=== PATIENT | male | born 1940 | race Hispanic/Latino ===

== ENCOUNTER 2023-06-30 07:14 | Inpatient (IN) | payer OTHER, SELFPAY ==
[2023-06-30] MEDS ORDERED: ACETAMINOPHEN 500 MG TAB ONE (07:56)
[2023-06-30 07:59] LABS: Absolute Lymphocytes (CBC) 0.4 K/uL (0.7-4.9); Hematocrit 33.1 % (39.6-49.0); Lymphocytes % 1.7 % (15.3-44.8); MCV 82.5 fL (80-100); MPV 8.6 fL (7.6-11.3); Platelets 246 thou/uL (152-406); RBC Red Blood Cell Count 4.01 M/uL (4.33-5.43)
--- NOTE | 2023-06-30 07:59 | RAD REPORT ---
EXAM DESCRIPTION: RAD - Chest Single View - 06/30/2023 7:47 am CLINICAL HISTORY: CONGESTION Chest pain. COMPARISON: No comparisons FINDINGS: Portable technique limits examination quality. Moderate patchy opacity is seen in the right lung base likely pneumonia. The lungs are otherwise bhaskar r. The heart is mildly enlarged. No displaced fractures. IMPRESSION: Moderate right lower lobe pneumonia.
[2023-06-30 08:15] LABS: Potassium 3.7 mEq/L (3.5-5.1); Troponin High Sensitivity 39.8 pg/mL (<58.9)
[2023-06-30 08:20] LABS: Protime INR 1.16
[2023-06-30 08:42] LABS: Specific Gravity 1.014 (1.005-1.030); Urine Bacteria <20 /HPF (<20); Urine Bilirubin NEGATIVE (Negative); Urine Blood 2+ (Negative); Urine Clarity Extremely Turbid (Clear); Urine Color Light-Yellow (Yellow); Urine Glucose TRACE (Negative); Urine Mucus Slight /HPF (None Seen); Urine Protein 3+ (Negative); Urine RBC <5 /HPF (None Seen); Urine Urobilinogen Normal (Normal)
[2023-06-30] MEDS ORDERED: NA CHLORIDE 0.9% 250 ML ONE (08:43)
[2023-06-30] MEDS ORDERED: AZITHROMYCIN 500 MG INJ IVPB ONE (08:43)
[2023-06-30] MEDS ORDERED: CEFTRIAXONE 1000 MG/VIAL ONE (08:43)
[2023-06-30 08:49] LABS: SARS-CoV-2 Antigen Rapid Res Negative (Negative)
--- NOTE | 2023-06-30 09:24 | RAD REPORT ---
EXAM DESCRIPTION: CT - Chest For Pe Angio - 06/30/2023 8:55 am CLINICAL HISTORY: Chest pain. eval for pe COMPARISON: No comparisons TECHNIQUE: CT angiogram of the pulmonary arteries was performed with MIP. All CT scans are performed using dose optimization technique as appropriate and may include automated exposure control or mA/KV adjustment according to patient size. FINDINGS: No evidence of pulmonary thromboembolism. No acute aortic finding demonstrated. Mild diffuse COPD. Patchy opacity is present in the right lower lobe likely pneumonia. No significant pericardial or pleural fluid. No concerning bony finding. IMPRESSION: No evidence of pulmonary thromboembolism. Patchy opacities in right lower lung most compatible with pneumonia.
--- NOTE | 2023-06-30 09:27 | ER ---
Nurse's Notes [facility] Name: Merlin Colbert Age: 83 yrs Sex: Male : 1940 Arrival Date: 06/30/2023 Time: 07:14 Bed 15 Private MD: Diagnosis: Sepsis, unspecified organism;Unspecified bacterial pneumonia Presentation: 06/30 07:32 Chief complaint: Patient's son or daughter states: cough, cold symptoms, SOB X 2 weeks, iw no fever, has some chest tightness, hx of asthma and his sugar has been high, he just moved from [place] to live with daughter , she is trying to establish care for him locally. Coronavirus screen: Client presents with at least one sign or symptom that may indicate coronavirus-19. Ebola Screen: No symptoms or risks identified at this time. Initial Sepsis Screen: Does the patient meet any 2 criteria? RR > 20 per min. HR > 90 bpm. Does the patient have a suspected source of infection? Yes:. Risk Assessment: Do you want to hurt yourself or someone else? Patient reports no desire to harm self or others. Onset of symptoms was June 19, 2023. 07:32 Method Of Arrival: Wheelchair iw 07:32 Acuity: TATA 2 iw Triage Assessment: 17:02 General: Appears in no apparent distress. Behavior is calm, cooperative, appropriate cp4 for age. Respiratory: Reports shortness of breath at rest on exertion Onset: The symptoms/episode began/occurred gradually, the patient has moderate shortness of breath. Historical: - Allergies: 07:34 No Known Allergies; iw - Home Meds: 07:34 atorvastatin 20 mg oral tablet daily [Active]; glipizide 5 mg Oral tablet daily iw [Active]; amlodipine 10 mg tablet daily [Active]; losartan 100 mg oral tablet daily [Active]; Iron CR Oral daily [Active]; - PMHx: 07:34 Hypertensive disorder; Diabetes mellitus; Asthma; iw - PSHx: 07:34 leg; iw - Immunization history:: Client reports receiving the 2nd dose of the Covid vaccine. - Social history:: Smoking status: Patient/guardian denies using tobacco. Screenin:36 [facility] ED Fall Risk Assessment (Adult) History of falling in the last 3 months, ld1 including since admission No falls in past 3 months (0 pts). Abuse screen: Denies threats or abuse. Denies injuries from another. Nutritional screening: No deficits noted. Tuberculosis screening: No symptoms or risk factors identified. Assessment: 08:34 Reassessment: See triage assessment. Pain: Denies pain. Cardiovascular: Capillary ld1 refill < 3 seconds Patient's skin is warm and dry. Rhythm is atrial fibrillation. 08:35 Respiratory: Airway is patent Respiratory effort is even, labored, Breath sounds with ld1 wheezes bilaterally. 08:35 Reassessment: Pt C/O difficulty breathing. Notified ERP. Pt placed on 3L NC. ld1 17:43 Reassessment: Attempted to call report. Kelsey is off the floor and will call me back. cp4 Vital Signs: 07:32 BP 165 / 64; Pulse 100; Resp 25; Temp 98.7(TE); Pulse Ox 96% on R/A; Weight 106.59 kg; iw Height 5 ft. 5 in. ; 08:35 BP 162 / 61; Pulse 84; Resp 23; Pulse Ox 99% on 3 lpm NC; ld1 09:47 Pulse 92; Resp 22; Pulse Ox 98% on 3 lpm NC; ld1 11:00 BP 145 / 64; Pulse 78; Resp 20; Pulse Ox 99% 3 lpm ; cp4 12:00 BP 136 / 66; Pulse 73; Resp 20; Pulse Ox 99% 3 lpm ; cp4 13:00 BP 138 / 49; Pulse 79; Resp 22; Pulse Ox 100% 3 lpm ; cp4 14:00 BP 126 / 49; Pulse 78; Resp 20; Pulse Ox 100% 3 lpm ; cp4 15:00 BP 136 / 66; Pulse 78; Resp 20; Pulse Ox 100% 3 lpm ; cp4 16:00 BP 96 / 79; Pulse 76; Resp 21; Pulse Ox 100% 3 lpm ; cp4 17:00 BP 119 / 78; Pulse 78; Resp 21; Pulse Ox 100% 3 lpm ; cp4 07:32 Body Mass Index 39.11 (106.59 kg, 165.1 cm) iw ED Course: 07:18 Patient arrived in ED. rg4 07:24 Eboni Sal, STACEY is Primary Nurse. ld1 07:34 Triage completed. iw 07:35 Arm band placed on. iw 07:45 Jozef Mai MD is Attending Physician. ec2 07:49 XRAY Chest (1 view) In Process Unspecified. EDMS 07:54 Inserted saline lock: 20 gauge in right forearm, using aseptic technique. Blood ld1 collected. 07:55 Basic Metabolic Panel Sent. ld1 07:55 CBC with Diff Sent. ld1 07:55 D-Dimer Sent. ld1 07:55 Troponin HS Sent. ld1 08:08 SARS RAPID Sent. ld1 08:08 Influenza Screen (a \T\ B) Sent. ld1 08:08 Blood Culture Adult (2) Sent. ld1 08:08 Lactate w/ 2H reflex if indic. Sent. ld1 08:09 Troponin HS Sent. ld1 08:09 D-Dimer Sent. ld1 08:09 Basic Metabolic Panel Sent. ld1 08:09 Ptt, Activated Sent. ld1 08:09 Protime (+inr) Sent. ld1 08:09 NT PRO-BNP Sent. ld1 08:36 Patient has correct armband on for positive identification. Placed in gown. Bed in low ld1 position. Call light in reach. Side rails up X2. cafeteria monitor on. Pulse ox on. NIBP on. Door closed. Noise minimized. Warm blanket given. 08:36 No provider procedures requiring assistance completed. ld1 08:57 CT Chest For PE Angio In Process Unspecified. EDMS 09:26 Jozef Mai MD is Hospitalizing Provider. ec2 09:26 Ermias Burden MD is Hospitalizing Provider. ec2 18:14 Provided Education on: admission. cp4 18:14 Patient admitted, IV remains in place. cp4 Administered Medications: 08:09 Drug: Acetaminophen PO 1000 mg PO once Route: PO; ld1 08:47 Drug: Rocephin IV 1 grams IV at calculated rate once; Given slow IV push per pharmacy ld1 instructions Route: IV; Rate: calculated rate; Site: right forearm; 09:09 Drug: AZITHromycin IVPB 500 mg IVPB once over 1 hrs; (mix in 250 mL NS) Route: IVPB; ld1 Infused Over: 1 hrs; Site: right forearm; 10:33 Drug: Lactated Ringers Solution IV 1000 ml IV at bolus bolus Route: IV; Rate: bolus; cp4 Site: right antecubital; Medication: 08:36 VIS not applicable for this client. ld1 Outcome: 09:27 Decision to Hospitalize by Provider. ec2 18:14 Admitted to Tele accompanied by tech, via wheelchair, Report called to Kelsey clark 18:14 Condition: stable 18:14 Instructed on the need for admit, Demonstrated understanding of instructions, 18:28 Patient left the ED. cp4 Signatures: Dispatcher [employer] Anupama Perez RN RN iw Garcia, Rubi rg4 Eboin Sal RN RN ld1 Jozef Mai MD MD ec2 Alyssa Zaidi cp4
--- NOTE | 2023-06-30 09:27 | EDPHYS ---
Physician Documentation [facility] Name: Merlin Colbert Age: 83 yrs Sex: Male : 1940 Arrival Date: 06/30/2023 Time: 07:14 Bed 15 Private MD: ED Physician Jozef Mai HPI: 06/30 07:55 This 83 yrs old Male presents to ER via Wheelchair with complaints of ec2 Shortness Of Breath. 07:55 . ec2 07:56 Patient arrives today for evaluation of shortness of breath and chest tightness. ec2 Patient reports has been having symptoms for the past week, worsening today. Patient reports chest tightness as well as a productive cough, no fevers or chills, no nausea or vomiting. Patient reports some increased urinary frequency as well. Patient reports history of hypertension and diabetes as well as asthma. Has been using inhalers at home with some improvement in symptoms.. Historical: - Allergies: 07:34 No Known Allergies; iw - Home Meds: 07:34 atorvastatin 20 mg oral tablet daily [Active]; glipizide 5 mg Oral tablet daily iw [Active]; amlodipine 10 mg tablet daily [Active]; losartan 100 mg oral tablet daily [Active]; Iron CR Oral daily [Active]; - PMHx: 07:34 Hypertensive disorder; Diabetes mellitus; Asthma; iw - PSHx: 07:34 leg; iw - Immunization history:: Client reports receiving the 2nd dose of the Covid vaccine. - Social history:: Smoking status: Patient/guardian denies using tobacco. ROS: 07:56 Constitutional: as per hpi ec2 Exam: 07:56 Constitutional: GEN: NAD Head: atraumatic Eyes: EOMI Ears: External ears are ec2 normal. CV: Tachycardia, trace lower extremity edema LUNGS: no respiratory distress, scattered rhonchi ABD: non-distended SKIN: no evidence of rashes MSK: no evidence of trauma NEURO: moves all extremities equally Vital Signs: 07:32 BP 165 / 64; Pulse 100; Resp 25; Temp 98.7(TE); Pulse Ox 96% on R/A; Weight 106.59 kg; iw Height 5 ft. 5 in. ; 08:35 BP 162 / 61; Pulse 84; Resp 23; Pulse Ox 99% on 3 lpm NC; ld1 09:47 Pulse 92; Resp 22; Pulse Ox 98% on 3 lpm NC; ld1 11:00 BP 145 / 64; Pulse 78; Resp 20; Pulse Ox 99% 3 lpm ; cp4 12:00 BP 136 / 66; Pulse 73; Resp 20; Pulse Ox 99% 3 lpm ; cp4 13:00 BP 138 / 49; Pulse 79; Resp 22; Pulse Ox 100% 3 lpm ; cp4 14:00 BP 126 / 49; Pulse 78; Resp 20; Pulse Ox 100% 3 lpm ; cp4 15:00 BP 136 / 66; Pulse 78; Resp 20; Pulse Ox 100% 3 lpm ; cp4 16:00 BP 96 / 79; Pulse 76; Resp 21; Pulse Ox 100% 3 lpm ; cp4 17:00 BP 119 / 78; Pulse 78; Resp 21; Pulse Ox 100% 3 lpm ; cp4 07:32 Body Mass Index 39.11 (106.59 kg, 165.1 cm) iw MDM: 07:56 Data reviewed: vital signs. ED course: Patient arrives today for evaluation of chest ec2 tightness. Examination remarkable for slight tachycardic individual who has lower extremity trace edema. Will obtain lab work, EKG, chest x-ray as well as viral swabs. EKG obtained, independently reviewed and interpreted by me, shows atrial flutter with variable conduction with a rate of 108, no acute ST segment elevations, nonconcerning intervals.. 07:59 Patient medically screened. ec2 08:32 ED course: Metabolic profile shows hyponatremia with a sodium of 123, renal dysfunction ec2 with a creatinine of 1.76 and GFR 38. CBC shows marked leukocytosis with a WBC of 24. D-dimer elevated at 1700, BNP elevated at 1500. Troponin within normal ranges. Will obtain CT scan of the chest, treat the patient with antibiotics for pneumonia. . 09:25 ED course: CT scan negative for PE. Will admit for sepsis secondary to pneumonia.. ec2 06/30 07:35 Order name: Basic Metabolic Panel; Complete Time: 08:32 ld1 06/30 07:35 Order name: CBC with Diff ld1 06/30 07:35 Order name: D-Dimer; Complete Time: 08:32 ld1 06/30 07:35 Order name: Troponin HS; Complete Time: 08:32 ld1 06/30 07:55 Order name: Blood Culture Adult (2) ec2 06/30 07:55 Order name: Lactate w/ 2H reflex if indic.; Complete Time: 08:35 ec2 06/30 07:55 Order name: Protime (+inr); Complete Time: 08:32 ec2 06/30 07:55 Order name: Ptt, Activated; Complete Time: 08:32 ec2 06/30 07:55 Order name: Influenza Screen (a \T\ B); Complete Time: 09:15 ec2 06/30 07:55 Order name: SARS RAPID; Complete Time: 09:15 ec2 06/30 07:55 Order name: UAM; Complete Time: 09:15 ec2 06/30 08:03 Order name: NT PRO-BNP; Complete Time: 08:32 EDMS 06/30 10:24 Order name: Comprehensive Metabolic Panel EDMS 06/30 10:24 Order name: Comprehensive Metabolic Panel EDMS 06/30 10:24 Order name: Basic Metabolic Panel EDMS 06/30 10:25 Order name: Urinalysis w/ reflexes EDMS 06/30 10:25 Order name: CBC with Automated Diff EDMS 06/30 10:25 Order name: CBC with Automated Diff EDMS 06/30 10:25 Order name: CBC with Automated Diff EDMS 06/30 10:25 Order name: CBC with Automated Diff EDMS 06/30 10:25 Order name: CBC with Automated Diff EDMS 06/30 10:25 Order name: Comprehensive Metabolic Panel EDMS 06/30 10:25 Order name: Comprehensive Metabolic Panel EDMS 06/30 10:25 Order name: Comprehensive Metabolic Panel EDMS 06/30 10:25 Order name: Hemoglobin A1c EDMS 06/30 10:25 Order name: Hemoglobin A1c EDMS 06/30 10:25 Order name: Lipid Profile EDMS 06/30 10:25 Order name: Lipid Profile EDMS 06/30 10:25 Order name: Magnesium EDMS 06/30 10:25 Order name: Magnesium EDMS 06/30 10:25 Order name: Magnesium EDMS 06/30 10:25 Order name: Magnesium EDMS 06/30 10:25 Order name: Magnesium EDMS 06/30 10:25 Order name: Phosphorus EDMS 06/30 10:25 Order name: Phosphorus EDMS 06/30 10:25 Order name: Phosphorus EDMS 06/30 10:25 Order name: Phosphorus EDMS 06/30 10:25 Order name: Phosphorus EDMS 06/30 10:25 Order name: T4 Free EDMS 06/30 10:25 Order name: T4 Free EDMS 06/30 10:25 Order name: Thyroid Stimulating Hormone EDMS 06/30 10:25 Order name: Thyroid Stimulating Hormone [facility] 06/30 10:25 Order name: Troponin High Sensitivity EDMS 06/30 10:25 Order name: Troponin High Sensitivity EDMS 06/30 10:25 Order name: Troponin High Sensitivity [facility] 06/30 10:47 Order name: Vancomycin Level Trough [facility] 06/30 12:18 Order name: Glucose, Ancillary Testing [facility] 06/30 12:40 Order name: CBC Smear Scan [facility] 06/30 14:58 Order name: Osmolality, Serum [facility] 06/30 07:35 Order name: XRAY Chest (1 view); Complete Time: 08:32 ld1 06/30 08:33 Order name: CT Chest For PE Angio; Complete Time: 09:25 2 06/30 10:25 Order name: Echo with Doppler [facility] 06/30 13:43 Order name: US [facility] 06/30 07:35 Order name: EKG; Complete Time: 07:36 ld1 06/30 07:35 Order name: Cardiac monitoring; Complete Time: 07:35 ld06/30 07:35 Order name: EKG - Nurse/Tech; Complete Time: 07:40 ld1 06/30 07:35 Order name: IV Saline Lock; Complete Time: 07:53 1 06/30 07:35 Order name: Labs collected and sent; Complete Time: 07:53 06/30 07:35 Order name: O2 Per Protocol; Complete Time: 07:35 ld06/30 07:35 Order name: O2 Sat Monitoring; Complete Time: 07:35 ld1 Administered Medications: 08:09 Drug: Acetaminophen PO 1000 mg PO once Route: PO; ld1 08:47 Drug: Rocephin IV 1 grams IV at calculated rate once; Given slow IV push per pharmacy ld1 instructions Route: IV; Rate: calculated rate; Site: right forearm; 09:09 Drug: AZITHromycin IVPB 500 mg IVPB once over 1 hrs; (mix in 250 mL NS) Route: IVPB; ld1 Infused Over: 1 hrs; Site: right forearm; 10:33 Drug: Lactated Ringers Solution IV 1000 ml IV at bolus bolus Route: IV; Rate: bolus; cp4 Site: right antecubital; Disposition Summary: 06/30/23 09:27 Hospitalization Ordered Notes: Hospitalization Status: Inpatient Admission ec2 Provider: Ermias Burden ec2 Condition: Stable ec2 Problem: new ec2 Symptoms: have improved ec2 Bed/Room Type: Standard ec2 Location: Telemetry/MedSurg (Inpatient)(06/30/23 16:59) 1 Room Assignment: 408(06/30/23 16:59) [facility] Diagnosis - Sepsis, unspecified organism ec2 - Unspecified bacterial pneumonia ec2 Forms: - Medication Reconciliation Form ec2 - SBAR form ec2 - Leadership Thank You Letter ec2 Critical care time excluding procedures: 08:33 Critical care time: Bedside Care: 30 minutes, Consultation: 5 minutes. Total time: 35 ec2 minutes Signatures: Dispatcher [employer] EDAnupama Spangler, RN RN iw Demond Mosley, ENGINE REPAIR SUPERVISOR-C ENGINE REPAIR SUPERVISOR-Cla1 Gordo Verduzco RN RN ja1 Eboni Sal RN RN ld1 Cherelle Garay RN RN kb3 Jozef Mai MD MD ec2 Alyssa Zaidi cp4 Corrections: (The following items were deleted from the chart) 07:56 07:56 Patient arrives today for evaluation of shortness of breath and chest tightness.. ec2 ec2 08:03 07:55 PROBNP+C.LAB.BRZ ordered. EDOK EDMS 12:47 09:27 Telemetry/MedSurg (Inpatient) ec2 kb3 12:47 09:27 ec2 kb3 16:59 12:47 [facility] ER HOLD kb3 ja1 16:59 12:47 ERHOLD- kb3 ja1
[2023-06-30] MEDS ORDERED: ACETAMINOPHEN 500 MG TAB PO PRN (10:22)
[2023-06-30] MEDS ORDERED: ALBUTEROL 2.5 MG/3 ML NEB SOL NEB PRN (10:22)
[2023-06-30] MEDS: Ringers Lactate 1,000 ML IV SCH ×2 (11:00→19:44)
[2023-06-30] MEDS: CEFEPIME 1 GM in NA CHLORIDE 0.9% 100 ML IV SCH ×2 (11:00→19:43)
[2023-06-30] MEDS: VANCOMYCIN 2 GM in NA CHLORIDE 0.9% 500 ML IVPB SCH (11:00)
[2023-06-30] MEDS: ENOXAPARIN 100 MG/ML SYR SQ SCH (11:00)
[2023-06-30] MEDS: INSULIN REGULAR (HUMAN) 100 UNIT/ML SQ SCH ×3 (11:30→19:42)
[2023-06-30] MEDS ORDERED: INSULIN REGULAR (HUMAN) 100 UNIT/ML ONE (12:09)
[2023-06-30] MEDS ORDERED: CEFEPIME 1 GM/VIAL ONE (12:10)
[2023-06-30] MEDS ORDERED: NA CHLORIDE 0.9% 100 ML ONE (12:10)
[2023-06-30] MEDS ORDERED: ENOXAPARIN 100 MG/ML SYR SQ ONE (12:10)
[2023-06-30 12:39] LABS: Blood Morphology Comment NOT SEEN (NOT SEEN); Platelet Estimate ADEQ; White Blood Cell Scan OK (OK)
--- NOTE | 2023-06-30 13:42 | RAD REPORT ---
EXAM DESCRIPTION: US - Extrem Venous W Compress Kunal - 06/30/2023 1:04 pm CLINICAL HISTORY: Shortness of breath. Evaluate for DVT COMPARISON: None. TECHNIQUE: Real-time sonographic evaluation of the bilateral lower extremity deep venous systems was performed. FINDINGS: Normal compressibility, flow augmentation, phasic flow and spontaneous flow is identified in both the left and right lower extremity deep venous systems. No suspicious intraluminal filling de fects seen although a smooth echogenic focus is seen anteriorly along the left mid SFV, may represent a prominent valve. IMPRESSION: No DVT in either lower extremity.
[2023-06-30 13:44] VITALS: BMI 38.9
[2023-06-30 15:02] LABS: Potassium 3.7 mEq/L (3.5-5.1)
--- NOTE | 2023-06-30 15:17 | P.HP ---
Certification for Inpatient Patient admitted to: Inpatient With expected LOS: >2 Midnights Patient will require the following post-hospital care: None Practitioner: I am a practitioner with admitting privileges, knowledge of patient current condition, hospital course, and medical plan of care. Services: Services provided to patient in accordance with Admission requirements found in Title 42 Section 412.3 of the Code of Federal Regulations <Demond Mosley - Last Filed: 06/30/23 15:10> Patient History Date of Service: 06/30/23 Reason for admission: Pneumonia, hyponatremia History of Present Illness: 83-year-old male with history of diabetes type [id number], hypertension, hyperlipidemia, CKD with unknown baseline presents to the emergency department with chief complaint of shortness of breath. His family reports that he recently moved here from [place] and has been feeling unwell the past 2 weeks with cough, shortness of breath. He was evaluated in the emergency department his labs are significant for marked leukocytosis white blood cell count 24.6 sodium 123 potassium 3.7 chloride 92 creatinine 1.76 GFR 38 glucose 237 BNP 1520 D-dimer was elevated 1710 UA not concerning for urinary tract infection CTA of the chest was performed which was negative for PE but did show a right-sided pneumonia, venous Dopplers were performed bilateral lower extremities which were negative for DVT. Of note patient was in atrial fibrillation which would be new onset for him rate was between 80 and 100. Patient need to be admitted for sepsis, pneumonia, new onset atrial fibrillation, hyponatremia - Past Medical/Surgical History Has patient received pneumonia vaccine in the past: No -: CKD -: Hypertension -: Hyperlipidemia -: Diabetes mellitus type [id number] -: Left leg surgery Psychosocial/ Personal History: Lives at home with his daughter, recently moved from [place] - Family History Family History: Reviewed- Non-Contributory - Social History Smoking Status: Former smoker Alcohol use: No CD- Drugs: No Caffeine use: Yes Place of Residence: Home <Demond Mosley - Last Filed: 06/30/23 15:10> Date of Service: 06/30/23 <Ermias Burden - Last Filed: 06/30/23 17:44> Allergies No Known Allergies Allergy (Unverified 06/30/23 10:32) Review of Systems 10-point ROS is otherwise unremarkable General: Chills, Weakness Respiratory: Cough, Shortness of Breath, SOB with Excertion <DimitriDemond Reardon - Last Filed: 06/30/23 15:10> Physical Examination - Vital Signs Temperature: 98.7 F Blood Pressure: 136/66 Pulse: 68 Respirations: 20 Pulse Ox (%): 99 - Physical Exam General: Alert, In no apparent distress, Oriented x3 HEENT: Atraumatic, PERRLA, Mucous membr. moist/pink Neck: Supple, 2+ carotid pulse no bruit, No LAD Respiratory: Diminished Cardiovascular: Normal S1 S2, Edema (Trace edema lower extremities worse on the left with healed surgical wound at ankle), Irregular heart rate/rhythm Gastrointestinal: Normal bowel sounds, No tenderness Musculoskeletal: No tenderness Integumentary: No rashes Neurological: Normal speech, Normal strength at 5/5 x4 extr, Normal tone, Normal affect - Studies Laboratory Data (last 24 hrs) 06/30/23 06/30/23 06/30/23 07:49 07:49 07:49 WBC 24.60 H Hgb 11.0 L Hct 33.1 L Plt Count 246 PT 12.7 H INR 1.16 APTT 30.5 Sodium 123 L Potassium 3.7 BUN 32 H Creatinine 1.76 H Glucose 237 H Microbiology Data (last 24 hrs): 06/30/23 08:04 Nasopharnyx Influenza Type A Antigen Screen - Final 06/30/23 08:04 Nasopharnyx Influenza Type B Antigen Screen - Final <Demond Mosley - Last Filed: 06/30/23 15:10> - Studies Laboratory Data (last 24 hrs) 06/30/23 06/30/23 06/30/23 07:49 07:49 07:49 WBC 24.60 H Hgb 11.0 L Hct 33.1 L Plt Count 246 PT 12.7 H INR 1.16 APTT 30.5 Sodium 123 L Potassium 3.7 BUN 32 H Creatinine 1.76 H Glucose 237 H Microbiology Data (last 24 hrs): 06/30/23 08:04 Nasopharnyx Influenza Type A Antigen Screen - Final 06/30/23 08:04 Nasopharnyx Influenza Type B Antigen Screen - Final <Ermias Burden - Last Filed: 06/30/23 17:44> Assessment and Plan - Plan Assessment: Sepsis secondary to right-sided pneumonia Hyponatremia New onset atrial fibrillation Diabetes mellitus type [id number] with hyperglycemia Hypertension Hyperlipidemia CKDunknown baseline Plan: Sepsis secondary to right-sided pneumonia Blood cultures obtained-follow Continue broad-spectrum antibiotics vancomycin/cefepime Currently on nasal cannula-wean as tolerated Hyponatremia Suspect this acute Will give gentle IVF and repeat chemistry Nephrology consult in place urine studies ordered New onset atrial fibrillation Echo ordered, cardiology consult [id number] 2 score is 4 warranting anticoagulation-lovenox ordered Rate controlled at this time, BP on the low side Diabetes mellitus type [id number]-vyenfiejn with hyperglycemia ACHS Accu-Chek,sliding scale insulin, A1c in the morning Hypertension Hold oral antihypertensive agents given elevated blood pressure Resume when blood pressures persistently elevated Hyperlipidemia Continue home medications once verified CKDunknown baseline Monitor renal function daily, continue gentle IV fluid DVT PPX: Therapeutic Lovenox Code status: Full Discharge Plan: Home Plan to discharge in: Greater than 2 days - Advance Directives Does patient have a Living Will: No Does patient have a Durable POA for Healthcare: No - Code Status/Comfort Care Code Status Assessed: Yes (Full code) Critical Care: No Time Spent Managing Pts Care (In Minutes): 70 <Demond Mosley - Last Filed: 06/30/23 15:10> - Plan Patient seen and examined on admission. Plan of care discussed with BOG WORKER Dimitri. Agree with plan as noted above with the following additions/corrections: Sepsis secondary to pneumonia, continue empiric antibiotics 1+ lower extremity edema to ankles on the right, 12+ on the left which is more chronic according the patient. He reported few days of slight discomfort right foot Elevated D-dimer, negative CTA for PE Rule out DVT <Ermias Burden - Last Filed: 06/30/23 17:44>
[2023-06-30] MEDS ORDERED: INFLUENZA VACCINE (for 6+ mo) 0.5 ML DOSE IMVAC ONE (16:00)
[2023-06-30] MEDS ORDERED: PNEUMOCOCCAL VACCINE 0.5 ML IMVAC ONE (16:00)
--- NOTE | 2023-06-30 16:54 | P.CNS ---
Date of Consult: 06/30/23 Reason for Consult: Shortness of breath Chief Complaint: Pneumonia, hyponatremia History of Present Illness: He is 83 years of age metabolic syndrome with shortness of breath apparently recently moved from [place] has not feeling well for the past 2 weeks comp laining of cough and shortness of breath. With leukocytosis hyponatremia hypokalemia renal insufficiency with a right-sided pneumonia my evaluation he was doing well patient is nonverbal Barbadian-speaking only he looked well was eating his lunch he had any distress new onset A-fib Allergies No Known Allergies Allergy (Unverified 06/30/23 10:32) Home Medications: Albuterol Neb [Proventil 0.083% Neb Soln] 2.5 mg NEB [id number] PRN #120 amp 07/02/23 Apixaban [Eliquis *] 2.5 mg PO BID #60 tab 07/02/23 Ipratropium Neb [Atrovent*] 0.5 mg NEB [id number] #120 amp 07/02/23 Metoprolol Tartrate [Lopressor*] 25 mg PO BID 6AM 6PM #60 tab 07/02/23 Nebulizer 1 each MC QID #1 ea 07/02/23 levoFLOXacin [Levaquin] 750 mg PO DAILY #8 tab 07/02/23 - Past Medical/Surgical History -: CKD -: Hypertension -: Hyperlipidemia -: Diabetes mellitus type [id number] -: Left leg surgery Psychosocial/ Personal History: Lives at home with his daughter, recently moved from [place] - Social History Alcohol use: No CD- Drugs: No Caffeine use: Yes Place of Residence: Home Review of Systems is unable to be obtained Physical Examination Temp Pulse Resp BP Pulse Ox 98.7 F 68 20 136/66 99 06/30/23 15:17 06/30/23 15:17 06/30/23 15:17 06/30/23 15:17 06/30/23 15:17 General: Alert, Cooperative Respiratory: Clear to auscultation bilaterally Cardiovascular: No edema, Regular rate/rhythm, Normal S1 S2 Gastrointestinal: Normal bowel sounds, Soft and benign Laboratory Data (last 24 hrs) 06/30/23 06/30/23 06/30/23 07:49 07:49 07:49 WBC 24.60 H Hgb 11.0 L Hct 33.1 L Plt Count 246 PT 12.7 H INR 1.16 APTT 30.5 Sodium 123 L Potassium 3.7 BUN 32 H Creatinine 1.76 H Glucose 237 H - Problems (1) Pneumonia Current Visit: Yes Status: Acute Plan: Patient is 83 years of age Barbadian-speaking only was admitted admitted with right lower lobe pneumonia leukocytosis hyponatremia mild renal insufficiency scan chest x-rays reviewed he has some right lower lobe infiltrate his white count is is elevated he is on cefepime vancomycin await blood culture his vital signs are stable Qualifiers: Pneumonia type: due to unspecified organism Laterality: right
--- NOTE | 2023-06-30 19:10 | CON ---
Date of Consultation: 06/30/2023 Reason For Consultation: Atrial fibrillation with ventricular response. History Of Present Illness: An 83-year-old male with history of diabetes, hypertension, dyslipidemia , chronic kidney disease, presented to the emergency room with shortness of breath, cough, low-grade fever, and sputum production. Found to be in atrial fibrillation with rapid ventricular response and he converted to sinus rhythm and has been in sinus since, but he does have also complaint of chest p ain on and off. Past Medical History: As outlined above in the HPI. Medications: Refer to reconciliation sheet for detailed list. Allergies: NO KNOWN DRUG ALLERGIES. Family History: No premature coronary artery disease or cancer. Social History: He does not smoke or drink. Does not use any drugs. Review of Systems: All systems reviewed and they were negative except what mentioned in HPI. Physical Examination: Vital Signs: Reviewed. Head and Neck: Pupils are equal, reactive to light. Intact eye movements. No JVD. No cervical lym phadenopathy. Neck is supple. Thyroid is not enlarged. Lungs: Decreased breathing sounds with rhonchi bilaterally. No accessory muscle use or muscle retra ction. Heart: Regular rate and rhythm. No extra sounds. Abdomen: Soft, nontender. Bowel sounds positive. No organomegaly. No masses or hernia. No rigidi ty or rebound. Extremities: No clubbing or cyanosis. Intact pulses. Skin: No rash. Neurologic: Alert, awake, oriented x3. No acute focal deficits appreciated. Investigations: D-dimer was [address] angiogram ruled out pulmonary embolism. Hemoglobin is 11, w lorna blood cell count is 24.6, and the cardiac enzymes are negative. BUN is 31, creatinine 1.68. Assessment And Recommendations: 1.Atrial fibrillation with rapid ventricular response, converted to sinus rhythm. Recommend to star t metoprolol 25 mg by mouth twice a day and he needs a stroke prevention with Eliquis 2.5 mg twice a day and obtain an echocardiogram. He is currently in sinus rhythm. 2.Chest discomfort due to pneumonia. It is a pleuritic pain. Cardiac enzymes are negative and PE w as ruled out and he is on antibiotics for the pneumonia. Cardiology will sign off and this patient c an be followed up as outpatient once his pneumonia is cleared. SR/MODL Voice ID: [id number] Report ID: [id number]
[2023-06-30 20:02] LABS: Specific Gravity 1.019 (1.005-1.030); Urine Bacteria None Seen /HPF (<20); Urine Bilirubin NEGATIVE (Negative); Urine Blood 1+ (Negative); Urine Clarity Extremely Turbid (Clear); Urine Color Light-Yellow (Yellow); Urine Crystals Unidentified Few /HPF (None Seen); Urine Glucose TRACE (Negative); Urine Protein 2+ (Negative); Urine RBC <5 /HPF (None Seen); Urine Urobilinogen Normal (Normal); Urine pH 5.5 (5.0-7.0)
[2023-06-30] MEDS ORDERED: ENOXAPARIN 100 MG/ML SYR SQ SCH (21:00)
[2023-06-30 21:31] LABS: UR SODIUM < 15 mmol/L (27-287)
[2023-06-30] MEDS ORDERED: Ringers Lactate 1,000 ML IV SCH (23:18)
[2023-06-30 23:57] LABS: Albumin 2.4 g/dL (3.4-5.0); Bilirubin Total 0.2 mg/dL (0.2-1.0); Magnesium 1.9 mg/dL (1.6-2.4); Phosphorus 3.3 mg/dL (2.5-4.9); Potassium 3.7 mEq/L (3.5-5.1); Protein, Total 6.5 g/dL (6.4-8.2); Uric Acid 6.6 mg/dL (3.5-7.2)
[2023-07-01] MEDS: ENOXAPARIN 100 MG/ML SYR SQ SCH ×2 (00:16→12:21)
[2023-07-01] MEDS ORDERED: THIAMINE 200 MG/2 ML INJ IVP ONE (00:28)
--- NOTE | 2023-07-01 00:33 | PN ---
Date of Progress Note: 06/30/2023 Chief Complaint: Acute kidney injury associated with hyponatremia. Subjective: The patient is admitted for pneumonia. He was found to have hyponatremia. Sodium level on admission was 123. The patient was started on mild hydration and lactated Ringer was used for hy dration. He is an 83-year-old man with history of diabetes mellitus, non-insulin dependent, hyperten heber, hyperlipidemia, chronic kidney disease of unknown baseline. [facility] of [facility] of [facility]. His family reported that he recently moved from [facility]. He was feeling unwell over last 2 weeks and he was complaining of cough and shortness of breath . He was evaluated in the emergency room and was found to have marked leukocytosis. White count was up to 24.6. Sodium was 123, potassium 3.7, chloride 92, creatinine level 1.76, glucose 237, BNP [address] angiogram of the chest was performed and was negative for PE, but it showed right-sided pneumo satnam. A venous Doppler was also done to rule out DVT, and bilateral lower extremity venous Doppler wa s negative for DVT. The patient has atrial fibrillation. Apparently, it is a new onset of atrial fi brillation and rate is between 80 to 100. Past Medical History: Chronic kidney disease, hypertension, hyperlipidemia, diabetes mellitus type 2 , insulin dependent, left leg surgery. Family History: Noncontributory. Social History: Denies alcohol. He denies drugs. He is a former smoker. Review of Systems: The patient is not a good historian. He was complaining of cough, shortness of breath, weakness, and chills. He denies abdominal pain, nausea, vomiting. Denies hematuria, dysuria, incomplete voiding. Physical Examination: Vital Signs: Blood pressure is 136/66, heart rate 68, respiratory rate 20, pulse oximeter 99, temper ature 98.7. General: The patient is alert, not in acute distress. Neck: Supple. No bruits. Respiratory: Diminutive bilaterally at bases. Cardiovascular: S1, S2. Extremities: Trace edema in the left lower extremity in both ankles. GI: Normal bowel sounds. No rebound or guarding. Skin: Warm and dry. No skin rash. Laboratory Data: WBC 24.6, hemoglobin 11, hematocrit 33.1. INR 1.16, PTT 12.7. Sodium 123, potassi um 3.7, BUN 32, creatinine 1.76, glucose 237. WBC 24.6, hemoglobin 11, hematocrit 33. Impression And Plan: The patient is admitted for sepsis. He has right-sided pneumonia. He develope d sepsis secondary to pneumonia and was found to have new onset of atrial fibrillation, diabetes, and the patient has hyponatremia. He is started on mild hydration and workup is initiated to assess hyp onatremia cause. The likely cause is hypotension and sepsis as well as pneumonia. The patient will have urine osmolality, urine sodium and creatinine level evaluated. Plan is to check serum uric acid to assess cortisol level and TSH level. The patient has acute kidney injury and urinalysis will be done to assess proteinuria and to rule out microscopic hematuria. In view of acute kidney injury, CK level will be checked to rule out rhabdomyolysis. Renal ultrasoun d was ordered to evaluate for possible hydronephrosis. EB/MODL Voice ID: [id number] Report ID: [id number]
[2023-07-01] MEDS ORDERED: DESMOPRESSIN 4 MCG/ML AMP SQ ONE (00:36)
[2023-07-01] MEDS ORDERED: D5W 1,000 ML IV SCH (01:00)
[2023-07-01 05:29] LABS: UR PROTEIN 233.2 mg/dL (<11.9); Urine Protein/Creatinine Ratio 3.48 ratio (<0.15)
[2023-07-01 06:02] LABS: Absolute Lymphocytes (CBC) 1.1 K/uL (0.7-4.9); Hematocrit 27.3 % (39.6-49.0); Lymphocytes % 7.5 % (15.3-44.8); MCV 82.8 fL (80-100); MPV 8.7 fL (7.6-11.3); Platelets 214 thou/uL (152-406)
[2023-07-01 06:32] LABS: Albumin 2.3 g/dL (3.4-5.0); Bilirubin Total 0.3 mg/dL (0.2-1.0); Magnesium 1.9 mg/dL (1.6-2.4); Phosphorus 3.5 mg/dL (2.5-4.9); Potassium 3.6 mEq/L (3.5-5.1); Protein, Total 6.3 g/dL (6.4-8.2); Thyroid Stimulating Hormone 1.15 uIU/mL (0.358-3.740)
[2023-07-01] MEDS: INSULIN REGULAR (HUMAN) 100 UNIT/ML SQ SCH ×4 (07:30→19:51)
--- NOTE | 2023-07-01 07:47 | RAD REPORT ---
EXAM DESCRIPTION: US - Renal Ultrasound-Complete - 07/01/2023 5:45 am CLINICAL HISTORY: [email or web address] COMPARISON: No comparisons FINDINGS: Both kidneys are normal in size, shape and echotexture. The right kidney measures 11.5 cm. Several cysts noted, the largest measuring approximately 6.5 cm. The left kidney measures 12.7 cm. Several cysts noted, the largest measuring 3.1 cm. Echogenic focus in the lower pole possibly representing a small nonobstructing stone measuring 3 mm. IMPRESSION: No evidence of hydronephrosis. Bilateral renal cysts. Possible nonobstructing stone in l ower pole left kidney.
[2023-07-01] MEDS: THIAMINE 200 MG/2 ML INJ IVP SCH (08:40)
[2023-07-01] MEDS: CEFEPIME 1 GM in NA CHLORIDE 0.9% 100 ML IV SCH ×2 (08:41→20:15)
[2023-07-01] MEDS ORDERED: POTASSIUM CL SA 10 MEQ TAB PO ONE (09:00)
--- NOTE | 2023-07-01 15:54 | PN ---
Date of Progress Note: 07/01/2023 Subjective: The patient was admitted to the hospital with acute kidney injury secondary to contrast- induced nephropathy. Obstructive uropathy has been ruled out, superimposed with electrolyte imbalanc e. The patient feeling better today. Objective: Vital Signs: Blood pressure 141/65, pulse of 87, afebrile. Chest: Clear to auscultation. Heart: S1, S2. Systolic murmur. Abdomen: Soft, nontender. Extremities: No edema. Neurologic: Alert. No focality. Laboratory Data: Hemoglobin 9.3, sodium 132, potassium 3.6, bicarb 27, BUN 29, creatinine down to 1. 5. Calcium 8.4, phosphorus 3.5, magnesium 1.9. Current Medications: The patient on, it includes: 1.Metoprolol. 2.Lovenox. 3.Tylenol. 4.Thiamine. Assessment And Plan: 1.Hyponatremia secondary to depletional, recovered, resolved. Currently normal volume, status post DDAVP. No need for DDAVP. 2.Hypertension, controlled, optimal, with the presence of acute kidney injury. Continue current azalia atment. I am going to hold any JASON inhibitor or ARB for the time being. 3.Acute kidney injury, multifactorial, secondary to prerenal/toxic ATN. Obstructive uropathy has be en ruled out. Normal size kidney with nephrotic range of proteinuria. a.I am going to keep holding any JASON inhibitor or ARB for the time being and we will monitor. 4.With the presence of anemia and nephrotic range proteinuria, I am going to go ahead and send for f ull serology for the patient. 5.New-onset atrial fibrillation, as by Primary. 6.Diabetes, as by Primary. 7.Pneumonia. Continue current antibiotic. MA/MODL Voice ID: [id number] Report ID: [id number]
--- NOTE | 2023-07-01 16:43 | P.PN ---
Subjective Date of Service: 07/01/23 Chief Complaint: Pneumonia, hyponatremia Family report patient has noisy breathing which is worse during sleep. No recorded fever Patient was seen sitting at the edge of the bed today. Physical Examination - Vital Signs Temperature: 97.8 F Blood Pressure: 141/65 Pulse: 87 Respirations: 20 Pulse Ox (%): 20 Assessment And Plan - Plan Physical Exam General: Alert, In no apparent distress, Oriented x3 HEENT: Atraumatic, PERRLA, Mucous membr. moist/pink Neck: Supple, No LAD. Respiratory: Diminished Cardiovascular: Normal S1 S2, Irregular heart rate/rhythm, Trace edema lower extremities. Gastrointestinal: Normal bowel sounds, No tenderness Musculoskeletal: No tenderness Integumentary: No rashes Neurological: Normal speech, no focal motor deficits. Diagnosis Sepsis secondary to right-sided pneumonia Hyponatremia New onset atrial fibrillation Diabetes mellitus type 3yfl-tffqifc-xersfgyyu with hyperglycemia Hypertension Hyperlipidemia CKDunknown baseline Plan: Sepsis secondary to right-sided pneumonia Blood cultures: No growth to date. Leukocytosis is improving. Continue broad-spectrum antibiotics vancomycin/cefepime for 1 more day and transition to oral antibiotics. Currently on nasal cannula-wean as tolerated Hyponatremia Acute Nephrology input appreciated. Patient was given a dose of desmopressin. Sodium level improved. Continue to monitor renal function. New onset atrial fibrillation Cardiology input appreciated. Metoprolol and Eliquis recommended by cardiology. Echo done, result is pending. Diabetes mellitus type 6ccm-wcbuzyu-lkxaekbbi with hyperglycemia ACHS Accu-Chek,sliding scale insulin. Hypertension On metoprolol. Titrate for BP control. Hyperlipidemia Continue home medications. CKDunknown baseline Monitor renal function daily. Nephrology is following. IV fluid discontinued. COPD/suspected obstructive sleep apnea Bronchodilators as needed Sleep study as outpatient DVT PPX: Eliquis Code status: Full Discharge Plan: Home
[2023-07-01] MEDS: METOPROLOL TAR 25 MG TAB PO SCH (17:10)
--- NOTE | 2023-07-01 17:53 | EKG ---
Test Date: 2023-06-30 Test Time: 07:40:49 Manager Molecular: KEVAN MEASUREMENT RESULTS: Intervals: Rate: 108 MO: QRSD: 100 QT: 372 QTc: 498 [place]: P: MO: QRS: 80 T: 52 INTERPRETIVE STATEMENTS: Atrial flutter with variable AV block Nonspecific ST abnormality Abnormal ECG No previous ECG available for comparison Electronically Signed On 07-01-23 17:50:47 WAGE ANALYST by Larry Ozuna
[2023-07-01] MEDS: IPRATROPIUM BROM 0.5MG/2.5ML NEB SCH (20:14)
[2023-07-01] MEDS: APIXABAN 2.5 MG TABLET PO SCH (20:15)
[2023-07-02] MEDS: IPRATROPIUM BROM 0.5MG/2.5ML NEB SCH ×3 (01:20→13:18)
[2023-07-02] MEDS: METOPROLOL TAR 25 MG TAB PO SCH (05:00)
[2023-07-02 06:29] LABS: Absolute Lymphocytes (CBC) 0.7 K/uL (0.7-4.9); Lymphocytes % 8.4 % (15.3-44.8); MPV 9.1 fL (7.6-11.3); Platelets 206 thou/uL (152-406); RBC Red Blood Cell Count 3.42 M/uL (4.33-5.43)
--- NOTE | 2023-07-02 06:38 | ECHO ---
HEIGHT: 5 ft 5 in WEIGHT: 200 lb 6.4 oz DATE OF STUDY: 07/01/[address]: Demond Mosley NP 2-DIMENSIONAL: YES M.MODE: YES DOPPLER: YES COLOR FLOW: YES TDS: PORTABLE: YES DEFINITY: BUBBLE STUDY: DIAGNOSIS: NEW ATRIAL FIBRILLATION CARDIAC HISTORY: CATHERIZATION: SURGERY: PROSTHETIC VALVE: PACEMAKER: MEASUREMENTS (cm) DIASTOLIC (NORMALS) SYSTOLIC (NORMALS) IVSd 1.0 (0.6-1.2) LA Diam (1.9-4.0) LVEF 66% LVIDd 5.1 (3.5-5.7) LVIDs 3.2 (2.0-3.5) %FS 37% LVPWd 1.1 (0.6-1.2) Ao Diam 3.1 (2.0-3.7) 2 DIMENSIONAL ASSESSMENT: RIGHT ATRIUM: NORMAL LEFT ATRIUM: NORMAL RIGHT VENTRICLE: NORMAL LEFT VENTRICLE: NORMAL TRICUSPID VALVE: NORMAL MITRAL VALVE: MILD MITRAL REGUGITATION PULMONIC VALVE: NORMAL AORTIC VALVE: MILD AORTIC INSUFFICIENCY PERICARDIAL EFFUSION: NONE AORTIC ROOT: NORMAL LEFT VENTRICULAR WALL MOTION: NORMAL DOPPLER/COLOR FLOW: SEE BELOW COMMENTS: 1. NORMAL LEFT VENTRICULAR EJECTION FRACTION 60-65% 2. NORMAL WALL MOTION 3. MILD MITRAL REGURGITATION 4. MILD AORTIC INSUFFICIENCY 5. GRADE I DIASTOLIC DYSFUNCTION TECHNOLOGIST: LARISA POSEY
[2023-07-02 06:57] LABS: Albumin 2.3 g/dL (3.4-5.0); Bilirubin Total 0.3 mg/dL (0.2-1.0); Ferritin 102.2 ng/mL (26-388); Magnesium 1.8 mg/dL (1.6-2.4); Phosphorus 2.4 mg/dL (2.5-4.9); Potassium 3.5 mEq/L (3.5-5.1); Protein, Total 6.6 g/dL (6.4-8.2); Uric Acid 6.3 mg/dL (3.5-7.2)
[2023-07-02 07:16] LABS: Rheumatoid Factor NEG (NEG)
[2023-07-02] MEDS: INSULIN REGULAR (HUMAN) 100 UNIT/ML SQ SCH ×3 (07:30→16:30)
[2023-07-02] MEDS: APIXABAN 2.5 MG TABLET PO SCH (08:31)
[2023-07-02] MEDS: CEFEPIME 1 GM in NA CHLORIDE 0.9% 100 ML IV SCH (08:31)
[2023-07-02] MEDS: THIAMINE 200 MG/2 ML INJ IVP SCH (08:32)
--- NOTE | 2023-07-02 10:27 | P.DS ---
Admission Date: 06/30/23 Discharge Date: 07/02/23 Disposition: DC HOME/HOME HEALTH CARE Discharge Condition: FAIR Reason for Admission: Pneumonia, hyponatremia Brief History of Present Illness: 83-year-old male with history of diabetes type 3ncq-ubzvlmc-hymnsskve, hypertension, hyperlipidemia, CKD with unknown baseline presented to the emergency department with chief complaint of shortness of breath. His family reported that he recently moved here from [place] and has been feeling unwell for 2 weeks with cough, shortness of breath. He was evaluated in the emergency department his labs significant for marked leukocytosis white blood cell count 24.6 sodium 123, creatinine 1.76, D-dimer was elevated 1710, UA not concerning for urinary tract infection. CTA of the chest was performed which was negative for PE but did show a right-sided pneumonia, venous Dopplers were performed bilateral lower extremities which were negative for DVT. Of note patient was in atrial fibrillation which is new onset for him. 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 Leukocytosis resolved Treated wth broad-spectrum antibiotics vancomycin/cefepime and transitioned to oral Levaquin on discharge. Stable on room air. Hyponatremia Acute Nephrology input appreciated. Patient was given a dose of desmopressin. Sodium level improved. New onset atrial fibrillation Seen by Cardiology. Metoprolol and Eliquis recommended by cardiology. Echo: Normal EF, no significant valvular abnormality. Diabetes mellitus type 1pgi-hhavxsp-gkabjzcfx with hyperglycemia Managed with ACHS Accu-Chek,sliding scale insulin. Hemoglobin A1c: 7.7 Discharged with oral metformin. Hypertension On metoprolol. Hyperlipidemia Continued home medications. Acute on chronic kidney disease stage II Monitor renal function daily. Nephrology is following. IV fluid discontinued. COPD/suspected obstructive sleep apnea Bronchodilators as needed Patient was seen and evaluated by pulmonary Dr. Dahl Follow-up with Dr. Snyder as outpatient for sleep apnea evaluation. Vital Signs/Physical Exam: Temp Pulse Resp BP Pulse Ox 98.0 F 76 23 H 165/72 H 92 07/02/23 08:00 07/02/23 08:00 07/02/23 08:00 07/02/23 08:00 07/02/23 08:00 General: Alert, In no apparent distress, Oriented x3 HEENT: Mucous membr. moist/pink Neck: Supple, JVD not distended Respiratory: Clear to auscultation bilaterally, Normal air movement Cardiovascular: No edema, Regular rate/rhythm, Normal S1 S2 Gastrointestinal: Normal bowel sounds, Soft and benign, Non-distended, No tenderness Musculoskeletal: No clubbing, No tenderness Integumentary: No rashes, No cyanosis Neurological: Normal speech, Normal strength at 5/5 x4 extr Laboratory Data at Discharge: WBC 8.40 thou/uL (4.3-10.9) 07/02/23 05:52 Hgb 9.9 g/dL (13.6-17.9) L 07/02/23 05:52 Hct 28.0 % (39.6-49.0) L 07/02/23 05:52 Plt Count 206 thou/uL (152-406) 07/02/23 05:52 PT 12.7 SECONDS (9.5-12.5) H 06/30/23 07:49 INR 1.16 06/30/23 07:49 APTT 30.5 SECONDS (24.3-36.9) 06/30/23 07:49 Sodium 131 mEq/L (136-145) L 07/02/23 05:52 Potassium 3.5 mEq/L (3.5-5.1) 07/02/23 05:52 BUN 30 mg/dL (7-18) H 07/02/23 05:52 Creatinine 1.25 mg/dL (0.70-1.30) 07/02/23 05:52 Glucose 160 mg/dL (74-106) H 07/02/23 05:52 Uric Acid 6.3 mg/dL (3.5-7.2) 07/02/23 05:52 Phosphorus 2.4 mg/dL (2.5-4.9) L 07/02/23 05:52 Magnesium 1.8 mg/dL (1.6-2.4) 07/02/23 05:52 Total Bilirubin 0.3 mg/dL (0.2-1.0) 07/02/23 05:52 AST 20 U/L (15-37) 07/02/23 05:52 ALT 18 U/L (16-61) 07/02/23 05:52 Alkaline Phosphatase 187 U/L (45-117) H D 07/02/23 05:52 Triglycerides 62 mg/dL (<150) 07/01/23 05:27 Cholesterol 137 mg/dL (<200) 07/01/23 05:27 HDL Cholesterol 53 mg/dL (40-60) 07/01/23 05:27 Cholesterol/HDL Ratio 2.58 07/01/23 05:27 Home Medications: Albuterol Neb [Proventil 0.083% Neb Soln] 2.5 mg NEB [id number] PRN #120 amp 07/02/23 Apixaban [Eliquis *] 2.5 mg PO BID #60 tab 07/02/23 Ipratropium Neb [Atrovent*] 0.5 mg NEB [id number] #120 amp 07/02/23 Metoprolol Tartrate [Lopressor*] 25 mg PO BID 6AM 6PM #60 tab 07/02/23 Nebulizer 1 each MC QID #1 ea 07/02/23 levoFLOXacin [Levaquin] 750 mg PO DAILY #8 tab 07/02/23 New Medications: Ipratropium Neb [Atrovent*] 0.5 mg NEB [id number] #120 amp Albuterol Neb [Proventil 0.083% Neb Soln] 2.5 mg NEB [id number] PRN #120 amp PRN Reason: Shortness Of Breath Apixaban [Eliquis *] 2.5 mg PO BID #60 tab levoFLOXacin [Levaquin] 750 mg PO DAILY #8 tab Metoprolol Tartrate [Lopressor*] 25 mg PO BID 6AM 6PM #60 tab Nebulizer 1 each MC QID #1 ea Physician Discharge Instructions: Diagnosis Sepsis secondary to right-sided pneumonia Hyponatremia New onset atrial fibrillation Diabetes mellitus type 7cgn-lgqacak-kuuyfrozg with hyperglycemia Hypertension Hyperlipidemia Chronic kidney disease You are admitted because of pneumonia with sepsis (blood reaction to the pneumo satnam) and treated with Iv antibiotics. We found out you have atrial fibrillation (irregular heart beat) that can increase your risk for stroke. You were seen by yard goods salesperson Dr. Ozuna who recommended metoprolol to control your heart rate and blood thinner to reduce your risk for stroke. The sepsis resolved with treatment and pneumonia is better. You need to continue oral antibiotics for 10 more days to clear the pneumonia. Pneumonia can make you weak so home health PT is prescribed for the therapist to come home to help you exercise. You have a noisy breathing especially during sleep which suggest you have sleep apnea. You were evaluated by the media center assistant Dr. Dahl and recommend you follow up with him to evaluate you for sleep apnea. Diet: AHA Activity: Fall precautions Followup: Félix Dahl MD [ACTIVE - CAN ADMIT] - (Within 2 weeks. Patient needs evaluation for sleep apnea) NONE,NONE [Primary Care Provider] - 1-2 Weeks Larry Ozuna MD [ACTIVE - CAN ADMIT] - (Within 2 weeks) Time spent managing pt's care (in minutes): 38
[2023-07-02] MEDS: VANCOMYCIN 2 GM in NA CHLORIDE 0.9% 500 ML IVPB SCH (11:05)
[2023-07-02 11:18] LABS: Magnesium 1.9 mg/dL (1.6-2.4); Potassium 3.6 mEq/L (3.5-5.1)
[2023-07-02] MEDS ORDERED: SOD FERRIC GLUC COMPLX/SUCROSE 250 MG in NA CHLORIDE 0.9% 250 ML IV SCH ×2 (12:00→13:00)
--- NOTE | 2023-07-02 14:11 | PN ---
Date of Progress Note: 07/02/2023 Subjective: The patient was admitted to the hospital with hyponatremia, pneumonia, acute kidney inju ry secondary to prerenal and contrast. The patient has been treated. Kidney function has been impro paris significantly. GFR up to 57 from 38, creatinine down to 1.25 from 1.75. Physical Examination: Vital Signs: Blood pressure 165/72, pulse of 76, afebrile. Chest: Faint rales on the base. Heart: S1, S2. Systolic murmur. Abdomen: Soft, nontender. Extremity: Trace edema. Venous stasis. Neuro: Alert. No focality. Laboratory Data: Sodium 131, potassium 3.5, bicarb 27, BUN 30, creatinine 1.2, GFR of 57, phosphorus 2.4, magnesium 1.8. Iron saturation of 14. Albumin 2.3, corrected calcium is 9.9. Chest x-ray, ca rdiomegaly with congestion. Serum protein electrophoresis still pending. PTH 58. PC ratio 3.4. Current Medications: The patient is on includes: 1.Cefepime. 2.Vancomycin. 3.Eliquis. 4.Metoprolol. 5.KCl. Assessment And Plan: 1.Acute kidney injury on chronic kidney disease. 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 The patient is still currently on the wet side. I am going to DC IV fluid and we will monitor the patient closely. 2.Nephrotic range of proteinuria. I am going to waiting for workup of the serology mostly secondary to diabetes. The patient will benefit as outpatient from JASON inhibitor. 3.We will follow up serology. 4.Iron deficiency anemia. We will start the patient on IV iron with the presence of acute kidney in jury. Follow up serum protein electrophoresis. 5.Diabetes as by primary. 6.Acute kidney injury, multifactorial, secondary to prerenal/cardio renal superimposed with contrast nephropathy, on the recovery. We will continue to monitor. Keep holding JASON inhibitor or ARB. 7.Pneumonia. Continue current antibiotic. We will follow up with primary. JAVIER/NADYA Voice ID: [id number] Report ID: [id number]
[2023-07-02 17:18] VITALS: O2SAT 97
[2023-07-02 17:41] VITALS: BP 158/60; TEMP 98.4
== END 2023-07-02 18:16 | disposition home or self-care (01) | DRG 871 ==
LOC: ER 07:14 → ERHOLD 10:16 → 4TH 18:18
PROVIDERS: ADMIT Hospitalist; ATTEND Internal Medicine
DX: A41.9 Sepsis, unspecified organism (principal); J18.9 Pneumonia, unspecified organism; E87.1 Hypo-osmolality and hyponatremia; I48.92 Unspecified atrial flutter; N17.9 Acute kidney failure, unspecified; J44.0 Chronic obstructive pulmonary disease with (acute) lower respiratory infection; I12.9 Hypertensive chronic kidney disease with stage 1 through stage 4 chronic kidney disease, or unspecified chronic kidney disease; N18.2 Chronic kidney disease, stage 2 (mild); E11.22 Type 2 diabetes mellitus with diabetic chronic kidney disease; E11.65 Type 2 diabetes mellitus with hyperglycemia; D63.1 Anemia in chronic kidney disease; D50.9 Iron deficiency anemia, unspecified; G47.33 Obstructive sleep apnea (adult) (pediatric); E78.5 Hyperlipidemia, unspecified; Z79.01 Long term (current) use of anticoagulants; Z79.84 Long term (current) use of oral hypoglycemic drugs; Z11.52 Encounter for screening for COVID-19; Z79.899 Other long term (current) drug therapy; Z87.891 Personal history of nicotine dependence
CPT/HCPCS: 36415; 71045; 71275; 76770; 80048; 80053; 80061; 80069; 81001; 82533; 82550; 82570; 82728; 82947; 83036; 83520; 83540; 83605; 83735; 83880; 83930; 83935; 83970; 84100; 84132; 84156; 84165; 84300; 84439; 84443; 84466; 84484; 84550; 85025; 85044; 85379; 85610; 85730; 86021; 86038; 86160; 86225; 86430; 86803; 87040; 87804; 87811; 93005; 93306; 93970; 94640; 96374; 96375; 99285; J0692; J0696; J1650; J1815; J2597; J2916; J3411; J7040; J7050; J7120; J7644; Q9967

== ENCOUNTER 2024-02-22 06:38 | Emergency (ER) | payer OTHER ==
--- OUTSIDE RECORDS SUMMARY | 2024-02-22 06:43 | XMS REPORT | Continuity of Care Document ---
Author Name Unknown Address [address] [facility] [address] [place] [address] [facility] thconnect Address [address] [facility] [address] [place] [address] Care Team Providers Care Head Up Operator Helper Name Role Phone ED CYR Primary Care Physician Unavailab le ANTHONY MOELLER Attending Clinician Unav ailANTHONY Hernandez Attending Clinician Unav ailable WONG TUTTLE Attending Clinician Unavailable ED CYR Attending Clinician Unavailable ALICIA PAINTING Attending Clinician Unavailable ARMEN WHATLEY Attending Clinician UnavailEd Redman Attending Clinician [phone] Kishore Stewart DO Attending Clinician [phone] KISHORE STEWART Attending Clinician Unavailable Lab, Ang - Db Attending Clinician Unavailable Wong Tuttle MD Attending Clinician [phone] Doctor Unassigned, [place] Attending Clinician U navailANTHONY Hernandez Admitting Clinician Unav ailable Payers Payer Name Policy Type Policy Number Effective Date Expirati on Date Source WELLMED/C DUAL COMP HMO D SNP [id number] 2023 00:00:00 [place] [id number] 2023 00:00:00 MANAGED MEDICARE PPO/FFS GENERIC [id number] 2020 00:00:00 2023 00:00:00 Problems Condition Name Condition Details Condition Category Status Onset Date Resolution Date Last Treatment Date Treating Clinician Comments Source Memory changes Memory changes Disease Active 10-12 00:00: 00 [facility] Paroxysmal atrial fibrillati on Paroxysmal atrial fibrillati on Disease Active 4-04 00:00: 00 [facility] Elevated serum creatinine Elevated serum creatinine Disease Active 18 00:00: 00 [facility] Anemia, unspecifie d type Anemia, unspecifie d type Disease Active 318 00:00: 00 [facility] Chronic right-side d low back pain, unspecifie d whether sciatica present Chronic right-side d low back pain, unspecifie d whether sciatica present Disease Active 318 00:00: 00 [facility] Hx of smoking Hx of smoking Disease Active 18 00:00: 00 [facility] Obesity (BMI 30-39.9) Obesity (BMI 30-39.9) Disease Active 2-07 00:00: 00 [facility] Chronic heart failure with preserved ejection fraction Chronic heart failure with preserved ejection fraction Disease Active 2-07 00:00: 00 [facility] Flu vaccine need Flu vaccine need Disease Active 2-07 00:00: 00 [facility] 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 Disease Active 2-05 00:00: 00 [facility] Type 2 diabetes mellitus with hyperglyce simeon, without long-term current use of insulin Type 2 diabetes mellitus with hyperglyce simeon, without long-term current use of insulin Disease Active 07-07 00:00: 00 [facility] Wheezing Wheezing Disease Active 07-07 00:00: 00 [facility] Essential hypertensi on Essential hypertensi on Disease Active 07-07 00:00: 00 [facility] Atrial fibrillati on, unspecifie d type Atrial fibrillati on, unspecifie d type Disease Active 07-07 00:00: 00 [facility] Mild hyperchole sterolemia Mild hyperchole sterolemia Disease Active 07-07 00:00: 00 [facility] Allergies, Adverse Reactions, Alerts Allergy Name Allergy Type Status Severity Reaction(s) Onset Date Inactive Date Treating Clinician Comments Source NO KNOWN ALLERGIE S Drug Class Active [facility] Social History Social Habit Start Date Stop Date Quantity Comments Source [facility] History of tobacco use Cigarette Smoker [facility] Alcoholic beverage intake 2023-10-21 00:00:00 2023-10-21 00:00:00 Ex-drinker (finding) [facility] Alcohol intake 2023-09-11 00:00:00 2023-09-11 00:00:00 Ex-drinker (finding) [facility] Tobacco use and exposure 2023-07-16 00:00:00 2023-07-16 00:00:00 Smokeless tobacco non-user [facility] History of Social function 2023-07-07 00:00:00 2023-07-07 00:00:00 [facility] Sex assigned at 1940 00:00:00 1940 00:00:00 [facility] Smoking Status Start Date Stop Date Source Tobacco smoking consumption unknown [facility] Ex-smoker 2023-07-16 00:00:00 2023-07-16 00:00:00 [facility] Medications Ordered Medication Name Filled Medication Name Start Date Stop Date Current Medication? Ordering Clinician Indication Dosage Frequency Signature (SIG) Comments Components Source divalproex (DEPAKOTE) 125 mg delayed release tablet 10-20 00:00: 00 Yes [id number] 125mg Take 1 tablet by mouth at bedtime. [facility] memantine (NAMENDA) 10 mg tablet 10-20 00:00: 00 Yes [id number] 10mg Take 1 tablet by mouth daily. [facility] lidocaine 1% (PF) (XYLOCAINE) injection 09-29 12:46: 50 09-29 13:04 :19 No ONCE INTRA PROCEDURE, Starting on Fri09/30/23 at 0746, Until Fri09/30/23 at 0804, Routine, CV Intraproce dure [facility] ceFAZolin (ANCEF) injection 09-29 12:40: 00 09-29 13:04 :19 No ONCE INTRA PROCEDURE, Starting on Fri09/30/23 at 0740, Until Fri09/30/23 at 0804, ALYCIA, CV Intraproce dure [facility] ipratropium -albuteroL 0.5 mg-3 mg(2.5 mg base)/3 mL nebulizer solution 09-01 00:00: 00 Yes [id number] 3mL Inhale 3 mL 4 (four) times daily. [facility] fluticasone propion-mingo meteroL (ADVAIR DISKUS) 250-50 mcg/dose inhalation disk 09-01 00:00: 00 Yes [id number] 1{puff} Inhale 1 Puff every 12 (twelve) hours. [facility] montelukast (SINGULAIR) 10 mg tablet 09-01 00:00: 00 Yes [id number] 10mg Take 1 tablet by mouth daily. [facility] gabapentin 100 mg capsule 08-25 00:00: 00 Yes [id number] 100mg Take 1 capsule by mouth 2 (two) times daily as needed for Pain (scale 4-6). [facility] insulin glargine (LANTUS U-100 INSULIN) 100 unit/mL injection 07-14 00:00: 00 Yes [id number] 10U inject 10 Units under the skin at bedtime. [facility] Insulin Syringe-Nee dle U-100 (ADVOCATE SYRINGES) 0.3 mL 30 gauge x 5/16" Syrg 07-14 00:00: 00 Yes [id number] Use as directed [facility] bumetanide 0.5 mg tablet 07-08 00:00: 00 10-20 00:00 :00 No [id number] 4101 .5mg Take 1 tablet by mouth daily. [facility] predniSONE 20 mg tablet 07-08 00:00: 00 07-14 05:59 :00 No [id number] 20mg Take 1 tablet by mouth daily for 5 days. [facility] methylPREDN ISolone (MEDROL, HERO,) 4 mg tablets 07-08 00:00: 00 07-08 00:00 :00 No [id number] Take by mouth SEE-INSTRU CTIONS for 5 days. follow package directions [facility] Fluticasone -Salmeterol (ADVAIR DISKUS) 100-50 mcg/dose inhalation disk 07-07 00:00: 00 09-01 00:00 :00 No [id number] 1{puff} Inhale 1 Puff every 12 (twelve) hours. [facility] albuterol 2.5 mg /3 mL (0.083 %) nebulizer solution 07-07 00:00: 00 09-01 00:00 :00 No [id number] 2.5mg Inhale 3 mL every 4 (four) hours as needed for Wheezing or Shortness of Breath. [facility] VIOS Ene 07-02 00:00: 00 Yes USE DIRECTED FOUR TIMES PER DAY. [facility] levoFLOXaci n 750 mg tablet 07-02 00:00: 00 10-20 00:00 :00 No 750mg Take 1 tablet by mouth daily. [facility] metoprolol tartrate 25 mg tablet 07-02 00:00: 00 10-20 00:00 :00 No TAKE ONE (1) TABLET(S) BY MOUTH TWICE A DAY AT 6AM AND 6PM. [facility] ipratropium 0.02 % nebulizer solution 07-02 00:00: 00 09-01 00:00 :00 No INHALE ONE (1) VIAL VIA NEBULIZER EVERY 6 HOURS NEEDED. [facility] albuterol 2.5 mg /3 mL (0.083 %) nebulizer solution 07-02 00:00: 00 07-07 00:00 :00 No INHALE ONE (1) VIAL VIA NEBULIZER EVERY 6 HOURS NEEDED FOR SHORTNESS OF BREATH. [facility] TRUEPLUS LANCETS 33 gauge Misc 2022-06 00:00: 00 Yes [facility] amLODIPine 10 mg tablet 2022-06 00:00: 00 Yes [facility] atorvastati n 20 mg tablet 2022-06 00:00: 00 Yes [facility] glipiZIDE 5 mg tablet 2022-06 00:00: 00 Yes [facility] XARELTO 15 mg tablet 2022-06 00:00: 00 10-20 00:00 :00 No [facility] losartan 100 mg tablet 2022-06 00:00: 00 Yes [facility] Immunizations Ordered Immunization Name Filled Immunization Name Date Status Comments Source Influenza Virus Vaccine,quad Im,preserve Free 65+ (FLUAD) Unknown Completed [facility] Influenza Virus Vaccine,quad Im,preserve Free 65+ (FLUAD) Unknown Completed [facility] Influenza Virus Vaccine,quad Im,preserve Free 65+ (FLUAD) Unknown Completed [facility] Influenza Virus Vaccine,quad Im,preserve Free 65+ (FLUAD) Unknown Completed [facility] Influenza Virus Vaccine,quad Im,preserve Free 65+ (FLUAD) Unknown Completed [facility] Influenza Virus Vaccine,quad Im,preserve Free 65+ (FLUAD) Unknown Completed [facility] Influenza Virus Vaccine,quad Im,preserve Free 65+ (FLUAD) Unknown Completed [facility] Influenza Virus Vaccine,quad Im,preserve Free 65+ (FLUAD) Unknown Completed [facility] Influenza Virus Vaccine,quad Im,preserve Free 65+ (FLUAD) Unknown Completed [facility] Pneumococcal 20 Conjugate, PCV20 (Prevnar 20) Unknown Completed [facility] SARS-COV-2 COVID 19 DANIEL SUCROSE VACCINE , , 0.3 ML (30 MCG), IM PFIZER (BECERRA TOP) Unknown Completed [facility] Influenza Virus Vaccine,quad Im,preserve Free 65+ (FLUAD) Unknown Completed [facility] Pneumococcal 20 Conjugate, PCV20 (Prevnar 20) Unknown Completed [facility] SARS-COV-2 COVID 19 DANIEL SUCROSE VACCINE , , 0.3 ML (30 MCG), IM PFIZER (BECERRA TOP) Unknown Completed [facility] Influenza Virus Vaccine,quad Im,preserve Free 65+ (FLUAD) Unknown Completed [facility] Pneumococcal 20 Conjugate, PCV20 (Prevnar 20) Unknown Completed [facility] SARS-COV-2 COVID 19 DANIEL SUCROSE VACCINE , , 0.3 ML (30 MCG), IM PFIZER (BECERRA TOP) Unknown Completed [facility] Influenza Virus Vaccine,quad Im,preserve Free 65+ (FLUAD) Unknown Completed [facility] Pneumococcal 20 Conjugate, PCV20 (Prevnar 20) Unknown Completed [facility] SARS-COV-2 COVID 19 DANIEL SUCROSE VACCINE , , 0.3 ML (30 MCG), IM PFIZER (BECERRA TOP) Unknown Completed [facility] Influenza Virus Vaccine,quad Im,preserve Free 65+ (FLUAD) Unknown Completed [facility] Pneumococcal 20 Conjugate, PCV20 (Prevnar 20) Unknown Completed [facility] SARS-COV-2 COVID 19 DANIEL SUCROSE VACCINE , , 0.3 ML (30 MCG), IM PFIZER (BECERRA TOP) Unknown Completed [facility] Influenza Virus Vaccine,quad Im,preserve Free 65+ (FLUAD) Unknown Completed [facility] Pneumococcal 20 Conjugate, PCV20 (Prevnar 20) Unknown Completed [facility] SARS-COV-2 COVID 19 DANIEL SUCROSE VACCINE , , 0.3 ML (30 MCG), IM PFIZER (BECERRA TOP) Unknown Completed [facility] Influenza Virus Vaccine,quad Im,preserve Free 65+ (FLUAD) Unknown Completed [facility] Pneumococcal 20 Conjugate, PCV20 (Prevnar 20) Unknown Completed [facility] SARS-COV-2 COVID 19 DANIEL SUCROSE VACCINE , , 0.3 ML (30 MCG), IM PFIZER (BECERRA TOP) Unknown Completed [facility] Influenza Virus Vaccine,quad Im,preserve Free 65+ (FLUAD) Unknown Completed [facility] Pneumococcal 20 Conjugate, PCV20 (Prevnar 20) Unknown Completed [facility] SARS-COV-2 COVID 19 DANIEL SUCROSE VACCINE , , 0.3 ML (30 MCG), IM PFIZER (BECERRA TOP) Unknown Completed [facility] Influenza Virus Vaccine,quad Im,preserve Free 65+ (FLUAD) Unknown Completed [facility] Pneumococcal 20 Conjugate, PCV20 (Prevnar 20) Unknown Completed [facility] SARS-COV-2 COVID 19 DANIEL SUCROSE VACCINE 12+, , 0.3 ML (30 MCG), IM PFIZER (BECERRA TOP) Unknown Completed [facility] Influenza Virus Vaccine,quad Im,preserve Free 65+ (FLUAD) Unknown Completed [facility] Pneumococcal 20 Conjugate, PCV20 (Prevnar 20) Unknown Completed [facility] SARS-COV-2 COVID 19 DANIEL SUCROSE VACCINE 12+, , 0.3 ML (30 MCG), IM PFIZER (BECERRA TOP) Unknown Completed [facility] Influenza Virus Vaccine,quad Im,preserve Free 65+ (FLUAD) Unknown Completed [facility] Pneumococcal 20 Conjugate, PCV20 (Prevnar 20) Unknown Completed [facility] SARS-COV-2 COVID 19 DANIEL SUCROSE VACCINE , , 0.3 ML (30 MCG), IM PFIZER (BECERRA TOP) Unknown Completed [facility] Influenza Virus Vaccine,quad Im,preserve Free 65+ (FLUAD) Unknown Completed [facility] Pneumococcal 20 Conjugate, PCV20 (Prevnar 20) Unknown Completed [facility] SARS-COV-2 COVID 19 DANIEL SUCROSE VACCINE , , 0.3 ML (30 MCG), IM PFIZER (BECERRA TOP) Unknown Completed [facility] Influenza Virus Vaccine,quad Im,preserve Free 65+ (FLUAD) Unknown Completed [facility] Pneumococcal 20 Conjugate, PCV20 (Prevnar 20) Unknown Completed [facility] SARS-COV-2 COVID 19 DANIEL SUCROSE VACCINE 12, , 0.3 ML (30 MCG), IM PFIZER (BECERRA TOP) Unknown Completed [facility] Influenza Virus Vaccine,quad Im,preserve Free 65+ (FLUAD) Unknown Completed [facility] Pneumococcal 20 Conjugate, PCV20 (Prevnar 20) Unknown Completed [facility] SARS-COV-2 COVID 19 DANIEL SUCROSE VACCINE +, , 0.3 ML (30 MCG), IM PFIZER (BECERRA TOP) Unknown Completed [facility] Influenza Virus Vaccine,quad Im,preserve Free 65+ (FLUAD) Unknown Completed [facility] Pneumococcal 20 Conjugate, PCV20 (Prevnar 20) Unknown Completed [facility] SARS-COV-2 COVID 19 DANIEL SUCROSE VACCINE , , 0.3 ML (30 MCG), IM PFIZER (BECERRA TOP) Unknown Completed [facility] Influenza Virus Vaccine,quad Im,preserve Free 65+ (FLUAD) Unknown Completed [facility] Pneumococcal 20 Conjugate, PCV20 (Prevnar 20) Unknown Completed [facility] SARS-COV-2 COVID 19 DANIEL SUCROSE VACCINE , , 0.3 ML (30 MCG), IM PFIZER (BECERRA TOP) Unknown Completed [facility] Influenza Virus Vaccine,quad Im,preserve Free 65+ (FLUAD) Unknown Completed [facility] Pneumococcal 20 Conjugate, PCV20 (Prevnar 20) Unknown Completed [facility] SARS-COV-2 COVID 19 DANIEL SUCROSE VACCINE , , 0.3 ML (30 MCG), IM PFIZER (BECERRA TOP) Unknown Completed [facility] Influenza Virus Vaccine,quad Im,preserve Free 65+ (FLUAD) Unknown Completed [facility] Pneumococcal 20 Conjugate, PCV20 (Prevnar 20) Unknown Completed [facility] SARS-COV-2 COVID 19 DANIEL SUCROSE VACCINE , , 0.3 ML (30 MCG), IM PFIZER (BECERRA TOP) Unknown Completed [facility] Influenza Virus Vaccine,quad Im,preserve Free 65+ (FLUAD) Unknown Completed [facility] Pneumococcal 20 Conjugate, PCV20 (Prevnar 20) Unknown Completed [facility] SARS-COV-2 COVID 19 DANIEL SUCROSE VACCINE , , 0.3 ML (30 MCG), IM PFIZER (BECERRA TOP) Unknown Completed [facility] Influenza Virus Vaccine,quad Im,preserve Free 65+ (FLUAD) Unknown Completed [facility] Pneumococcal 20 Conjugate, PCV20 (Prevnar 20) Unknown Completed [facility] SARS-COV-2 COVID 19 DANIEL SUCROSE VACCINE , , 0.3 ML (30 MCG), IM PFIZER (BECERRA TOP) Unknown Completed [facility] Influenza Virus Vaccine,quad Im,preserve Free 65+ (FLUAD) Unknown Completed [facility] Pneumococcal 20 Conjugate, PCV20 (Prevnar 20) Unknown Completed [facility] SARS-COV-2 COVID 19 DANIEL SUCROSE VACCINE 12+, , 0.3 ML (30 MCG), IM PFIZER (BECERRA TOP) Unknown Completed [facility] Vital Signs Vital Name Observation Time Observation Value Comments S ource Systolic blood pressure 2023-10-21 13:09:00 155 mm[Hg] [facility] Diastolic blood pressure 2023-10-21 13:09:00 73 mm[Hg] [facility] Heart rate 2023-10-21 13:01:00 84 /min [facility] Respiratory rate 2023-10-21 13:01:00 18 /min [facility] Body height 2023-10-21 13:01:00 [facility]1 cm [facility] Body weight 2023-10-21 13:01:00 87.363 [facility] BMI 2023-10-21 13:01:00 32.05 kg/m2 [facility] Oxygen saturation in Arterial blood by Pulse oximetry 2023-10-21 13:01:00 95 /min [facility] Systolic blood pressure 2023-10-13 20:10:00 145 mm[Hg] [facility] Diastolic blood pressure 2023-10-13 20:10:00 70 mm[Hg] [facility] Heart rate 2023-10-13 20:09:00 79 /min [facility] Body temperature 2023-10-13 20:09:00 36.89 Irena [facility] Respiratory rate 2023-10-13 20:09:00 18 /min [facility] Body height 2023-10-13 20:09:00 165.1 cm [facility] Body weight 2023-10-13 20:09:00 89.449 kg [facility] BMI 2023-10-13 20:09:00 32.82 kg/m2 [facility] Oxygen saturation in Arterial blood by Pulse oximetry 2023-10-13 20:09:00 96 /min [facility] Systolic blood pressure 2023-09-30 14:05:00 162 mm[Hg] [facility] Diastolic blood pressure 2023-09-30 14:05:00 67 mm[Hg] [facility] Heart rate 2023-09-30 14:05:00 69 /min [facility] Respiratory rate 2023-09-30 14:05:00 18 /min [facility] Oxygen saturation in Arterial blood by Pulse oximetry 2023-09-30 14:05:00 99 /min [facility] Body temperature 2023-09-30 12:02:00 36.89 Irena [facility] Body height 2023-09-30 12:02:00 165.1 cm [facility] Body weight 2023-09-30 12:02:00 89.812 kg [facility] BMI 2023-09-30 12:02:00 32.95 kg/m2 [facility] Heart rate 2023-09-30 13:05:00 70 /min [facility] Respiratory rate 2023-09-30 13:05:00 19 /min [facility] Oxygen saturation in Arterial blood by Pulse oximetry 2023-09-30 13:05:00 98 /min [facility] Systolic blood pressure 2023-09-30 12:02:00 165 mm[Hg] [facility] Diastolic blood pressure 2023-09-30 12:02:00 79 mm[Hg] [facility] Body temperature 2023-09-30 12:02:00 36.89 Irena [facility] Body height 2023-09-30 12:02:00 165.1 cm [facility] Body weight 2023-09-30 12:02:00 89.812 kg [facility] BMI 2023-09-30 12:02:00 32.95 kg/m2 [facility] Systolic blood pressure 2023-09-11 20:05:00 138 mm[Hg] [facility] Diastolic blood pressure 2023-09-11 20:05:00 69 mm[Hg] [facility] Heart rate 2023-09-11 20:04:00 77 /min [facility] Body temperature 2023-09-11 20:04:00 36.94 Irena [facility] Respiratory rate 2023-09-11 20:04:00 23 /min [facility] Body height 2023-09-11 20:04:00 165.1 cm [facility] Body weight 2023-09-11 20:04:00 88.451 kg [facility] BMI 2023-09-11 20:04:00 32.45 kg/m2 [facility] Oxygen saturation in Arterial blood by Pulse oximetry 2023-09-11 20:04:00 97 /min [facility] Systolic blood pressure 2023-09-02 16:21:00 166 mm[Hg] [facility] Diastolic blood pressure 2023-09-02 16:21:00 81 mm[Hg] [facility] Heart rate 2023-09-02 16:21:00 77 /min [facility] Respiratory rate 2023-09-02 16:21:00 17 /min [facility] Body height 2023-09-02 16:21:00 165.1 cm [facility] Body weight 2023-09-02 16:21:00 [facility]369 [facility] BMI 2023-09-02 16:21:00 30.95 kg/m2 [facility] Oxygen saturation in Arterial blood by Pulse oximetry 2023-09-02 16:21:00 99 /min [facility] Systolic blood pressure 2023-08-25 21:08:00 171 mm[Hg] [facility] Diastolic blood pressure 2023-08-25 21:08:00 69 mm[Hg] [facility] Heart rate 2023-08-25 21:07:00 76 /min [facility] Body temperature 2023-08-25 21:07:00 36.72 Irena [facility] Respiratory rate 2023-08-25 21:07:00 18 /min [facility] Body height 2023-08-25 21:07:00 165.1 cm [facility] Body weight 2023-08-25 21:07:00 87.499 kg [facility] [place] BMI 2023-08-25 21:07:00 32.10 kg/m2 [facility] Oxygen saturation in Arterial blood by Pulse oximetry 2023-08-25 21:07:00 97 /min [facility] [place] Systolic blood pressure 2023-08-18 18:57:00 147 mm[Hg] [facility] Diastolic blood pressure 2023-08-18 18:57:00 62 mm[Hg] [facility] Heart rate 2023-08-18 18:57:00 70 /min [facility] Body height 2023-08-18 18:57:00 165.1 cm [facility] Body weight 2023-08-18 18:57:00 88.134 kg [facility] BMI 2023-08-18 18:57:00 32.33 kg/m2 [facility] Oxygen saturation in Arterial blood by Pulse oximetry 2023-08-18 18:57:00 97 /min [facility] [place] Systolic blood pressure 2023-07-16 20:15:00 133 mm[Hg] [facility] Diastolic blood pressure 2023-07-16 20:15:00 64 mm[Hg] [facility] Heart rate 2023-07-16 20:15:00 77 /min [facility] [facility] Body height 2023-07-16 20:15:00 165.1 cm [facility] [place] Body weight 2023-07-16 20:15:00 89.858 kg [facility] [place] BMI 2023-07-16 20:15:00 32.97 kg/m2 [facility] Oxygen saturation in Arterial blood by Pulse oximetry 2023-07-16 20:15:00 97 /min [facility] Systolic blood pressure 2023-07-14 14:16:00 126 mm[Hg] [facility] Diastolic blood pressure 2023-07-14 14:16:00 82 mm[Hg] [facility] [place] Heart rate 2023-07-14 14:16:00 66 /min [facility] Body temperature 2023-07-14 14:16:00 36.72 Irena [facility] Respiratory rate 2023-07-14 14:16:00 18 /min [facility] Body height 2023-07-14 14:16:00 162.6 cm [facility] Body weight 2023-07-14 14:16:00 87.952 [facility] BMI 2023-07-14 14:16:00 33.28 kg/m2 [facility] Oxygen saturation in Arterial blood by Pulse oximetry 2023-07-14 14:16:00 98 /min [facility] Systolic blood pressure 2023-07-07 21:15:00 154 mm[Hg] [facility] Diastolic blood pressure 2023-07-07 21:15:00 64 mm[Hg] [facility] Heart rate 2023-07-07 21:14:00 75 /min [facility] Body temperature 2023-07-07 21:14:00 36.44 Irena [facility] Respiratory rate 2023-07-07 21:14:00 18 /min [facility] Body height 2023-07-07 21:14:00 167.6 cm [facility] Body weight 2023-07-07 21:14:00 89.812 kg [facility] BMI 2023-07-07 21:14:00 31.96 kg/m2 [facility] Oxygen saturation in Arterial blood by Pulse oximetry 2023-07-07 21:14:00 95 /min [facility] Procedures Procedure Date / Time Performed Performing Clinician Source ELECTROPHYSIOLOGY PROCEDURE 2023-09-30 13:04:08 [facility]OL[facility] (NA, K, CL, CO2, GLUCOSE, BUN, CREATININE, CA) 2023-09-30 11:52:00 [facility] WITH DIFF 2023-09-30 11:52:00 [facility]uel [facility] PROTHROMBIN TIME / INR 2023-09-30 11:52:00 [facility]uel [facility] BASIC METABOLIC PANEL (NA, K, CL, CO2, GLUCOSE, BUN, CREATININE, CA) 2023-09-30 11:52:00 Anthony Moeller [facility] CBC WITH DIFF 2023-09-30 11:52:00 Anthony Moeller [facility] PROTHROMBIN TIME / INR 2023-09-30 11:52:00 Anthony Moeller [facility] CBC WITH DIFF 2023-08-25 22:01:00 Ed Cyr [facility] SARS-COV-2 COVID 19 DANIEL SUCROSE VACCINE 12+, , 0.3 ML (30 MCG), IM PFIZER (BECERRA TOP) 2023-08-25 21:25:45 Ed Cyr [facility] PNEUMOCOCCAL 20 CONJUGATE (PREVNAR 20) VACCINE 2023-08-25 21:25:18 Ed Cyr [facility] EXTERNAL PROVIDER - ADC CARDIOLOGY 2023-07-18 06:01:00 Doctor Unassigned, [place] [facility] FLU VACC(),65+YR,0.5 ML,IM,ADJUVANTED,QUAD(FLUAD ) 2023-07-16 20:31:06 Wong Tuttle [facility] HB ECG ROUTINE & RHYTHM STRIP 2023-07-16 20:11[facility]W 2023-07-07 22:48:44 Ed Cyr [facility] Encounters Start Date/Time End Date/Time Encounter Type Admission Type Attending Clinicians Care Facility Care Department Encounter ID Source 2024-02-18 15:00:00 2024-02-18 15:00:00 Outpatient WONG BAILEY [facility] [id number] [facility] 2024-01-13 16:30:00 2024-01-13 16:30:00 Outpatient ED MITCHELL [facility] [id number] [facility] 2023-12-02 03:35:00 2023-12-02 23:59:00 Outpatient IVAN MOELLER CHOCKALINGA M [facility] [id number] [facility] 2023-12-02 03:35:00 2023-12-02 23:59:00 Hospital Encounter Ivan Moeller [facility] 1.2.840.114 350.1.13.10 4.2.7.2.686 [id number] [facility] 2023-12-02 03:30:00 2023-12-02 23:59:00 Hospital Encounter Ivan Moeller [facility] 1.2840.114 350.1.13.10 4.2.7.2.686 [id number] [facility] 2023-11-24 13:00:00 2023-11-24 13:00:00 Outpatient ALICIA DUMONT [facility] [id number] [facility] 2023-11-01 03:30:00 2023-11-01 23:59:00 Outpatient R IVAN MOELLER CHOCKALINGA M [facility] [id number] [facility] 2023-11-01 03:30:00 2023-11-01 23:59:00 Hospital Encounter Ivan Moeller [facility] 1.2.840.114 350.1.13.10 4.2.7.2.686 [id number] [facility] 2023-10-28 16:30:00 2023-10-28 16:30:00 Outpatient ARMEN PERRIN [facility] [id number] [facility] 2023-10-21 08:30:00 2023-10-21 08:38:01 Outpatient ALICIA DUMONT [facility] [id number] [facility] 2023-10-21 08:30:00 2023-10-21 08:38:01 Office Visit Alicia Painting [facility] 1.2.840.114 350.1.13.10 4.2.7.2.686 [id number] [facility] 2023-10-13 00:00:00 2023-10-13 16:04:07 Letter (Out) [facility] 1.2840.114 350.1.13.10 4.2.7.2.686 [id number] [facility] 2023-10-13 15:30:00 2023-10-13 15:30:00 Office Visit Ed Cyr [facility] 1.2840.114 350.1.13.10 4.2.7.2.686 [id number] [facility] 2023-10-13 15:30:00 2023-10-13 15:28:16 Outpatient R ED CYR [facility] [id number] [facility] 2023-10-07 16:00:00 2023-10-07 16:00:00 Outpatient R ED CYR [facility] [id number] [facility] 2023-09-30 06:38:00 2023-09-30 09:17:00 Outpatient R IVAN MOELLER [facility]OCKALINGA [facility] [id number] [facility] 2023-09-30 06:38:00 2023-09-30 09:17:00 Hospital Encounter Ivan Moeller [facility] ([facility]) 1.20.114 350.1.13.10 4.2.7.2.686 [id number] [facility] 2023-09-30 07:30:00 2023-09-30 08:15:00 [facility] 1.2840.114 350.1.13.10 4.2.7.2.686 [id number] [facility] 2023-09-23 00:00:00 2023-09-23 00:00:00 Outpatient R ED CYR [facility] [id number] [facility] 2023-09-11 15:00:00 2023-09-11 15:29:49 Outpatient R IVAN MOELLER CHOCKALINGA M [facility] [id number] [facility] 2023-09-11 15:00:00 2023-09-11 15:29:49 Office Visit Ivan Moeller [facility] 1..840.114 350.1.13.10 4.2.7.2.686 [id number] [facility] 2023-09-04 00:00:00 2023-09-04 00:00:00 Outpatient R ED CYR [facility] [id number] [facility] 2023-09-02 11:30:00 2023-09-02 12:00:00 Office Visit Kishore Stewart [facility] 1.2.840.114 350.1.13.10 4.2.7.2.686 [id number] [facility] 2023-09-02 11:30:00 2023-09-02 11:30:00 Outpatient R KISHORE STEWART [facility] [id number] [facility] 2023-08-26 08:00:00 2023-08-26 08:03:20 Outpatient R ED CYR [facility] [id number] [facility] 2023-08-26 08:00:00 2023-08-26 08:03:20 Transition Nurse Visit Lab, Ed Lin [facility] NAHEDPinedaBLADECornelius [facility] 1.2.840.114 350.1.13.10 4.2.7.2.686 [id number] [facility] 2023-08-26 00:00:00 2023-08-26 00:00:00 Telephone Ed Cyr [facility] 1.84.114 350.1.13.10 4.2.7.2.686 [id number] [facility] 2023-08-25 16:34:09 2023-08-25 23:59:00 Hospital Encounter Ed Cyr [facility] 1.84.114 350.1.13.10 4.2.7.2.686 [id number] [facility] 2023-08-25 17:00:00 2023-08-25 17:15:00 Transition Nurse Visit Lab, Ang - Db Ed Cyr [facility] 1.84.114 350.1.13.10 4.2.7.2.686 [id number] [facility] 2023-08-25 16:00:00 2023-08-25 16:38:24 Outpatient R ED CYR [facility] [id number] [facility] 2023-08-25 16:00:00 2023-08-25 16:38:24 Office Visit Ed Cry [facility] 1.84.114 350.1.13.10 4.2.7.2.686 [id number] [facility] 2023-08-18 14:20:00 2023-08-18 14:40:00 Office Visit Wong Tuttle [facility] 1.84.114 350.1.13.10 4.2.7.2.686 [id number] [facility] 2023-08-18 14:20:00 2023-08-18 14:09:50 Outpatient R MARRY, [facility]ERLY [facility] [id number] [facility] 2023-08-05 00:00:00 2023-08-05 00:00:00 Telephone MarquiseEd bauer [facility] 1.84.114 350.1.13.10 4.2.7.2.686 [id number] [facility] 2023-07-18 00:00:00 2023-07-18 00:00:00 Orders Only Doctor Unassigned, [place] [facility] 1.114 350.1.13.10 4.2.7.2.686 [id number] [facility] 2023-07-16 14:00:00 2023-07-16 14:36:16 [facility] 1.84.114 350.1.13.10 4.2.7.2.686 [id number] [facility] 2023-07-16 14:00:00 2023-07-16 14:36:16 Outpatient R TINO [facility] [id number] [facility] 2023-07-14 08:30:00 2023-07-14 08:31:10 Office Visit MarquiseEd bauer [facility] 1.84.114 350.1.13.10 4.2.7.2.686 [id number] [facility] 2023-07-14 08:30:00 2023-07-14 08:31:10 Outpatient R GERED [facility] [id number] [facility] 2023-07-08 00:00:00 2023-07-08 00:00:00 Telephone Ed Cyr [facility] 1.84.114 350.1.13.10 4.2.7.2.686 [id number] [facility] 2023-07-08 00:00:00 2023-07-08 00:00:00 Telephone [facility] 1.2.840.114 350.1.13.10 4.2.7.2.686 [id number] [facility] 2023-07-08 00:00:00 2023-07-08 00:00:00 Telephone Ed Cyr [facility] 1.2840.114 350.1.13.10 4.2.7.2.686 [id number] [facility] 2023-07-07 15:48:29 2023-07-07 23:59:00 Hospital Encounter Ed Cyr [facility] 1.284.114 350.1.13.10 4.2.7.2.686 [id number] [facility] 2023-07-07 15:45:00 2023-07-07 16:02:03 Transition Nurse Visit Lab, Nahun - Justen Ed Cyr [facility] 1.2.840.114 350.1.13.10 4.2.7.2.686 [id number] [facility] 2023-07-07 15:00:00 2023-07-07 15:48:52 Outpatient R ED CYR [facility] [id number] [facility] 2023-07-07 15:00:00 2023-07-07 15:30:00 Office Visit Ed Cyr [facility] 1.2.840.114 350.1.13.10 4.2.7.2.686 [id number] [facility] Results Test Description Test Time Test Comments Results Result Comments Source Electrophysiology procedure 21:27:32 Table formatting from the original result was not included.Implantable Loop Recorder Procedure NoteProcedure: Implantable Loop Recorder Implantation Indication: Atrial Fibrillation Monitoring Technique: The patient presented to the electrophysiology lab in the fasting state. After obtaining informed consent, the patient was prepped and draped in the usual sterile fashion. Local anesthesia was administered at the fourth intercostal space just medial to the left side of the sternum. Using a blade a small incision was made. A loop recorder was then deployed in this area. Repeat testing of electrical parameters confirmed device stability. Wound was closed with 4-0 Vicryl suture and Dermabond glue. Excellent hemostasis was achieved.The patient tolerated the procedure well and there were no acute complications. Device Characteristics: Loop Recorder: [employer] Model M312 R-waves 0.12 mV MRI Compatible Final Programming: Sensitivity 0.0037 mVBlank After Sense: 160 msecAF 4 minBrady 40 bpm at 1 secTachy 170 bpm at 5 secPause 3 sec or less Impression: Successful Implantation of an Implantable Loop Recorder Bipin Moeller, [facility] Met[facility] (NA, K, CL, CO2, GLUCOSE, BUN, CREATININE, CA)2023-09-30 12:27:54* Test Item Value Reference Range Interpretation Comme nts NA (test code = 2775685465) 135 mmol/L 135-145 K (test code = 4648278730) 3.8 mmol/L 3.5-5.0 CL (test code = 9977926055) 104 mmol/L 98-108 CO2 TOTAL (test code = 2069464731) 24 mmol/L 23-31 AGAP (test code = 5919301444) 7 2-16 BUN (test code = 3637322745) 38 mg/dL 7-23 H GLUCOSE (test code = 8453497299) 209 mg/dL 70-110 H CREATININE (test code = 2160-0) 1.62 mg/dL 0.60-1.25 H CALCIUM (test code = 3663867569) 9.2 mg/dL 8.6-10.6 eGFR (test code = 26006-6) 41.6 mL/min/1.73m2 CKD-EPI eGFR (2020). Assuming creatinine has been stable day-to-day for at least three months, the eGFR indicates Category G3b (30 - 44 mL/min/1.73 m2) Lab Interpretation (test code = 62466-8) [facility]normal [facility] / [id number] 12:13:15* Test Item Value Reference Range Interpretation Comme nts PROTIME PATIENT (test code = 5964-2) 10.6 10.1-12.6 INR (test code = 6301-6) 0.9 Normal INR <1.1; Warfarin Therapeutic range 2.0 to 3.0 or 2.5 to 3.5, depending upon the indications. Lab Interpretation (test code = 49954-1) Normal [facility] / [id number] 12:13:15* Test Item Value Reference Range Interpretation Comme nts PROTIME PATIENT (test code = 5964-2) 10.6 10.1-12.6 INR (test code = 6301-6) 0.9 Normal INR <1.1; Warfarin Therapeutic range 2.0 to 3.0 or 2.5 to 3.5, depending upon the indications. Lab Interpretation (test code = 85614-6) Normal [facility] with [id number] 12:01:11* Test Item Value Reference Range Interpretation Comme nts WBC (test code = 6690-2) 8.56 4.20-10.70 RBC (test code = 789-8) 4.15 4.26-5.52 L HGB (test code = 718-7) 10.7 g/dL 12.2-16.4 L HCT (test code = 4544-3) 34.0 % 38.4-49.3 L MCV (test code = 787-2) 81.9 fL 81.7-95.6 MCH (test code = 785-6) 25.8 pg 26.1-32.7 L MCHC (test code = 786-4) 31.5 g/dL 31.2-35.0 RDW-SD (test code = 89123-8) 42.5 fL 38.5-51.6 RDW-CV (test code = 788-0) 14.5 % 12.1-15.4 PLT (test code = 777-3) 211 150-328 MPV (test code = 12715-3) 11.5 fL 9.8-13.0 NRBC/100 WBC (test code = 5104406169) 0.0 0.0-10.0 NRBC x10^3 (test code = 7167809375) See_Comment [Automated messa ge] The system which generated this result transmitted reference range: 10*3/?L. The reference range was not used to interpret this result as normal/abnormal. GRAN MAT (NEUT) % (test code = 770-8) 61.6 % IMM GRAN % (test code = 3516269451) 0.20 % LYMPH % (test code = 736-9) 22.8 % MONO % (test code = 5905-5) 12.4 % EOS % (test code = 713-8) 2.1 % BASO % (test code = 706-2) 0.9 % GRAN MAT x10^3(ANC) (test code = 9860795696) 5.27 10*3/uL 1.99-6.95 IMM GRAN x10^3 (test code = 3122546030) 0.00-0.06 LYMPH x10^3 (test code = 731-0) 1.95 10*3/uL 1.09-3.23 MONO x10^3 (test code = 742-7) 1.06 10*3/uL 0.36-1.02 H EOS x10^3 (test code = 711-2) 0.18 10*3/uL 0.06-0.53 BASO x10^3 (test code = 704-7) 0.08 10*3/uL 0.01-0.09 Lab Interpretation (test code = 68061-4) Abnormal [facility] with [id number] 12:01:11* Test Item Value Reference Range Interpretation Comme nts WBC (test code = 6690-2) 8.56 4.20-10.70 RBC (test code = 789-8) 4.15 4.26-5.52 L HGB (test code = 718-7) 10.7 g/dL 12.2-16.4 L HCT (test code = 4544-3) 34.0 % 38.4-49.3 L MCV (test code = 787-2) 81.9 fL 81.7-95.6 MCH (test code = 785-6) 25.8 pg 26.1-32.7 L MCHC (test code = 786-4) 31.5 g/dL 31.2-35.0 RDW-SD (test code = 33253-8) 42.5 fL 38.5-51.6 RDW-CV (test code = 788-0) 14.5 % 12.1-15.4 PLT (test code = 777-3) 211 150-328 MPV (test code = 65465-3) 11.5 fL 9.8-13.0 NRBC/100 WBC (test code = 7585613370) 0.0 0.0-10.0 NRBC x10^3 (test code = 6270672084) See_Comment [Automated messa ge] The system which generated this result transmitted reference range: 10*3/?L. The reference range was not used to interpret this result as normal/abnormal. GRAN MAT (NEUT) % (test code = 770-8) 61.6 % IMM GRAN % (test code = 6032226864) 0.20 % LYMPH % (test code = 736-9) 22.8 % MONO % (test code = 5905-5) 12.4 % EOS % (test code = 713-8) 2.1 % BASO % (test code = 706-2) 0.9 % GRAN MAT x10^3(ANC) (test code = 9988350458) 5.27 10*3/uL 1.99-6.95 IMM GRAN x10^3 (test code = 0534550911) 0.00-0.06 LYMPH x10^3 (test code = 731-0) 1.95 10*3/uL 1.09-3.23 MONO x10^3 (test code = 742-7) 1.06 10*3/uL 0.36-1.02 H EOS x10^3 (test code = 711-2) 0.18 10*3/uL 0.06-0.53 BASO x10^3 (test code = 704-7) 0.08 10*3/uL 0.01-0.09 Lab Interpretation (test code = 21616-9) Abnormal [facility] with [id number] 02:48:46* Test Item Value Reference Range Interpretation Comme nts WBC (test code = 6690-2) 8.94 4.20-10.70 RBC (test code = 789-8) 4.01 4.26-5.52 L HGB (test code = 718-7) 10.8 g/dL 12.2-16.4 L HCT (test code = 4544-3) 34.5 % 38.4-49.3 L MCV (test code = 787-2) 86.0 fL 81.7-95.6 MCH (test code = 785-6) 26.9 pg 26.1-32.7 MCHC (test code = 786-4) 31.3 g/dL 31.2-35.0 RDW-SD (test code = 05233-0) 45.9 fL 38.5-51.6 RDW-CV (test code = 788-0) 14.6 % 12.1-15.4 PLT (test code = 777-3) 263 150-328 MPV (test code = 97936-9) 12.1 fL 9.8-13.0 NRBC/100 WBC (test code = 3827864648) 0.0 0.0-10.0 NRBC x10^3 (test code = 9583479755) See_Comment [Automated messa ge] The system which generated this result transmitted reference range: 10*3/?L. The reference range was not used to interpret this result as normal/abnormal. GRAN MAT (NEUT) % (test code = 770-8) 61.4 % IMM GRAN % (test code = 9010082752) 0.30 % LYMPH % (test code = 736-9) 24.7 % MONO % (test code = 5905-5) 8.8 % EOS % (test code = 713-8) 3.8 % BASO % (test code = 706-2) 1.0 % GRAN MAT x10^3(ANC) (test code = 1214760245) 5.48 10*3/uL 1.99-6.95 IMM GRAN x10^3 (test code = 1248879023) 0.03 10*3/uL 0.00-0.06 LYMPH x10^3 (test code = 731-0) 2.21 10*3/uL 1.09-3.23 MONO x10^3 (test code = 742-7) 0.79 10*3/uL 0.36-1.02 EOS x10^3 (test code = 711-2) 0.34 10*3/uL 0.06-0.53 BASO x10^3 (test code = 704-7) 0.09 10*3/uL 0.01-0.09 Lab Interpretation (test code = 60412-7) Abnormal [facility] with [id number] 02:48:46* Test Item Value Reference Range Interpretation Comme nts WBC (test code = 6690-2) 8.94 4.20-10.70 RBC (test code = 789-8) 4.01 4.26-5.52 L HGB (test code = 718-7) 10.8 g/dL 12.2-16.4 L HCT (test code = 4544-3) 34.5 % 38.4-49.3 L MCV (test code = 787-2) 86.0 fL 81.7-95.6 MCH (test code = 785-6) 26.9 pg 26.1-32.7 MCHC (test code = 786-4) 31.3 g/dL 31.2-35.0 RDW-SD (test code = 82117-7) 45.9 fL 38.5-51.6 RDW-CV (test code = 788-0) 14.6 % 12.1-15.4 PLT (test code = 777-3) 263 150-328 MPV (test code = 35717-3) 12.1 fL 9.8-13.0 NRBC/100 WBC (test code = 1537796368) 0.0 0.0-10.0 NRBC x10^3 (test code = 8519040786) See_Comment [Automated messa ge] The system which generated this result transmitted reference range: 10*3/?L. The reference range was not used to interpret this result as normal/abnormal. GRAN MAT (NEUT) % (test code = 770-8) 61.4 % IMM GRAN % (test code = 1302494614) 0.30 % LYMPH % (test code = 736-9) 24.7 % MONO % (test code = 5905-5) 8.8 % EOS % (test code = 713-8) 3.8 % BASO % (test code = 706-2) 1.0 % GRAN MAT x10^3(ANC) (test code = 1405754284) 5.48 10*3/uL 1.99-6.95 IMM GRAN x10^3 (test code = 3929399380) 0.03 10*3/uL 0.00-0.06 LYMPH x10^3 (test code = 731-0) 2.21 10*3/uL 1.09-3.23 MONO x10^3 (test code = 742-7) 0.79 10*3/uL 0.36-1.02 EOS x10^3 (test code = 711-2) 0.34 10*3/uL 0.06-0.53 BASO x10^3 (test code = 704-7) 0.09 10*3/uL 0.01-0.09 Lab Interpretation (test code = 92135-0) [facility] [id number] 03:17:49EXAM: XR CHEST 2 VW COMPARISON: None available HISTORY: wheezing, dx of pneumonia last week FINDINGS: Lungs: The lungs are well expanded and clear. Mild biapical pleuralthickening. Mild peribronchialcuffing. Heterogeneous opacities at the lungbases. No focal consolidation. Heart/Mediastinum: The cardiomediastinal silhouette is unremarkable. Bones and soft tissues: Degenerative changes of the spine and moderate mildcompression deformities of the thoracic segments. Moderate degenerativechanges of the bilateral acromioclavicular joints. [facility] Notes Date/Time Note Provider Source 2023-08-26 13:04:13 Images from the original note were not included. LUCÍA Mcknight 08/26/2023 11:53 AM CDT Shows possible wedging of lumbar which is where his pain is, Recommends an MRI , will order MRI and start him on Gabapentin 100mg BID and see if it helps Lucina Villatoro LVN [facility] 2023-08-26 11:53:31 MRI ordered for lumbar, and gabapentin sent for pain control [facility] 2023-08-26 08:00:00 Images from the original note were not included. Venipuncture collection performed by clean technique on the right anticubitus. Total of 1 attempts were made. Slight pressure and a bandage/dressing were applied to the site(s). The patient experienced no complications. The following specimens were processed according to instructions and sent to [facility] laboratories per lab order on 08/26/2023: LT BLUE SST 1 RED LAV PPT DK GREEN (LiHep) DK GREEN (SodH) BECERRA DK BLUE (K2) DK BLUE (S) ACD Blood Culture NIPT/NTD T [facility] 2023-08-25 17:00:00 Images from the original note were not included. Venipuncture collection performed by clean technique on the left anticubitus. Total of 1 attempts were made. Slight pressure and a bandage/dressing were applied to the site(s). The patient experienced no complications. The following specimens were processed according to instructions and sent to [facility] laboratories per lab order on today: LT BLUE SST RED LAV 2 PPT lt GREEN (LiHep) 1 DK GREEN (SodH) BECERRA DK BLUE (K2) DK BLUE (S) ACD Blood Culture NIPT/NTD Patient has been identified by name and was provided with cup, antiseptic towelette, and clean catch instructions. 1 urine specimen(s) sent. Unpreserved Urine Culture Aptima tube Other urine microalbumin [facility] 2023-08-05 09:55:30 Patient has been notified of test results/ recommendations per Ger Cox Gave verbal understanding [facility] 2023-08-05 09:16:15 Colon referral placed for anemia [facility] 2023-07-09 11:34:17 Patient has been notified of new medication sent to pharmacy per Ger Cox Gave verbal understanding [facility] 2023-07-08 15:29:22 I sent over Bumex for pt to start will cause him to urinate more. [facility] 2023-07-08 11:29:13 Attempted to contact patient, left message on voicemail UATE RN Chana Moore MA [facility] 2023-07-08 09:42:26 Addended by: ED CYR on: 07/08/2023 09:42 AM Modules accepted: Orders [facility] 2023-07-08 09:36:19 Ckd Stage 3b noted nephrology referral placed Will send steroid for wheezing in office. Pulm referral placed as well [facility] 2023-07-07 15:45:00 Images from the original note were not included. Venipuncture collection performed by clean technique on the right anticubitus. Total of 1 attempts were made. Slight pressure and a bandage/dressing were applied to the site(s). The patient experienced no complications. The following specimens were processed according to instructions and sent to [facility] laboratories per lab order on today: LT BLUE SST 1 RST RED LAV 2 PPT DK GREEN (LiHep) DK GREEN (SodH) BECERRA DK BLUE (K2) DK BLUE (S) ACD Blood Culture NIPT/NTD [facility]
[2024-02-22 07:17] LABS: Absolute Basophils 0.1 K/uL (0-0.5); Absolute Eosinophils 0.1 K/uL (0-0.5); Absolute Lymphocytes (CBC) 1.2 K/uL (0.7-4.9); Absolute Neutrophil 9.9 K/uL (1.8-8.0); Basophils % 0.5 % (0-1.3); Eosinophils % 0.8 % (0-4.4); Hematocrit 33.9 % (39.6-49.0); Lymphocytes % 9.4 % (15.3-44.8); MCH 26.6 pg (27.0-35.0); MCHC 32.3 g/dL (32.0-36.0); MCV 82.4 fL (80-100); MPV 9.6 fL (7.6-11.3); Monocytes % 8.1 % (3.3-12.3); Neutrophils % 81.2 % (41.7-73.7); Platelets 191 thou/uL (152-406); RBC Red Blood Cell Count 4.12 M/uL (4.33-5.43); Red Cell Distribution Width 15.2 % (12.1-15.2)
[2024-02-22 07:35] LABS: ALT/SGPT 18 U/L (16-61); AST/SGOT 17 U/L (15-37); Albumin 2.8 g/dL (3.4-5.0); Albumin/Globulin Ratio 0.7 (1.1-1.8); Alkaline Phosphatase 85 U/L (45-117); Anion Gap 12.6 mEq/L (5.0-15.0); BUN Blood Urea Nitrogen 33 mg/dL (7-18); Bicarbonate 22 mEq/L (21-32); Bilirubin Total 0.4 mg/dL (0.2-1.0); Glomerular Filtration Rate 42 ml/min (=/>90); Glucose Level 304 mg/dL (74-106); Magnesium 1.8 mg/dL (1.6-2.4); NT PRO-BNP 993 pg/mL (<450); Potassium 3.6 mEq/L (3.5-5.1); Protein, Total 6.8 g/dL (6.4-8.2); Sodium Level 130 mEq/L (136-145); Troponin High Sensitivity 18.6 pg/mL (<58.9)
[2024-02-22 07:38] LABS: Bilirubin Direct < 0.2 mg/dL (0-0.2); Bilirubin Indirect, Calculated 0.2 mg/dL (0.2-0.8)
--- NOTE | 2024-02-22 08:10 | RAD REPORT ---
EXAMINATION: ONE VIEW CHEST XR CLINICAL INDICATION: Male, 83 years old. [facility] MA[facility] DYSPNEA Bed Name: 14 TECHNIQUE: 1 View, AP supine, X-ray of the chest was performed. [id number]. COMPARISON: No prior exam. FINDINGS: Lungs and pleura: Mild opacities at the right lung base which may be chronic. No effusion. Heart and mediastinum: Normal heart size. Unremarkable mediastinal contours. Loop recorder overlies t he left hemithorax. Osseous structures: No acute abnormality. Tubes/lines: None Other: None. IMPRESSION: Mild airspace disease the right lung base could reflect pneumonia or pneumonitis. Alternatively, the findings may be chronic. This area should be better visualized on the forthcoming CT of the abdomen and pelvis.
--- NOTE | 2024-02-22 08:29 | RAD REPORT ---
EXAMINATION: CT ABDOMEN AND PELVIS WITHOUT CONTRAST CLINICAL INDICATION: Male, 83 years old. [facility] MAIN right flank pain;Abd pain Bed Name: 14 TECHNIQUE: CT abdomen and pelvis was performed, without IV contrast, as per department protocol. Axia l, sagittal and coronal reconstructions were obtained. One or more of the following dose reduction techniques were used: Automated exposure control, adjustment of the mA and/or kV according to the pa tient size, and/or iterative reconstruction. Unless otherwise specified, incidental findings do not require dedicated imaging follow-up. [id number]. IV CONTRAST: Not administered. COMPARISON: Chest CT 06/30/2023 FINDINGS: The lack of intravenous contrast limits the sensitivity of this exam for evaluation of solid visceral organs, vascular structures, and retroperitoneum. LOWER CHEST: Small chronic appearing right pleural effusion with partial loculation. Scarring at the left lung base. Coronary calcifications. Thickened distal esophagus likely reflecting esophagitis. LIVER: Normal in size and contour. No focal lesion. GALLBLADDER/BILE DUCTS: No biliary ductal dilatation. ? PANCREAS: No mass, ductal dilation, or grisel-pancreatic fluid. SPLEEN: Normal size. No focal lesion. ADRENALS: Normal; no mass. KIDNEYS AND URETERS: Hyperdense right renal lesion consistent with a hyperdense cyst. Other incomplet sandro characterized renal lesions bilaterally which most likely represent cysts. No ureteral calculi. URINARY BLADDER: Normal contour. GASTROINTESTINAL TRACT: Fluid present throughout the small bowel. Normal appendix. No bowel obstructi on. Diverticulosis. APPENDIX: No inflammatory changes in region of appendix. LYMPH NODES: No lymphadenopathy. ABDOMINAL AORTA AND OTHER VESSELS: Normal caliber aorta and IVC. Atherosclerosis. REPRODUCTIVE ORGANS: No pathologic process. MUSCULOSKELETAL: No acute or suspicious osseous abnormality. 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 ADDITIONAL FINDINGS: Fat-containing left inguinal hernia. IMPRESSION: Nonspecific small bowel fluid likely reflecting an enteritis. No bowel obstruction. Normal appendix.
--- NOTE | 2024-02-22 08:41 | ER ---
Nurse's Notes [facility] Name: Merlin Colbert Age: 83 yrs Sex: Male : 1940 Arrival Date: 02/22/2024 Time: 06:38 Bed 14 Private MD: Diagnosis: Pneumonia, unspecified organism Presentation: 02/21 06:50 Chief complaint: EMS states: having difficulty breathing \T\ flank pain for 2 days now. rg5 No history of fall or trauma. Coronavirus screen: Client denies travel out of the [place] in the last 14 days. Ebola Screen: Patient negative for fever greater than or equal to 101.5 degrees Fahrenheit, and additional compatible Ebola Virus Disease symptoms. Initial Sepsis Screen: Does the patient meet any 2 criteria? No. Patient's initial sepsis screen is negative. Does the patient have a suspected source of infection? No. Patient's initial sepsis screen is negative. Risk Assessment: Do you want to hurt yourself or someone else? Patient reports no desire to harm self or others. Onset of symptoms was February 22, 2024. Care prior to arrival: IV initiated. 18 GA, in the left antecubital area, Glucose check: 283. 06:50 Method Of Arrival: EMS: [facility] 06:50 Acuity: TATA 3 rg5 Triage Assessment: 06:55 General: Appears in no apparent distress. Behavior is calm, cooperative. Pain: rg5 Complains of pain in anterior aspect of right lateral abdomen Pain currently is 10 out of 10 on a pain scale. Quality of pain is described as aching. EENT: No deficits noted. Neuro: Level of Consciousness is awake, alert, Oriented to person. Cardiovascular: Denies chest pain, Patient's skin is warm and dry. Respiratory: Reports shortness of breath at rest Onset: The symptoms/episode began/occurred yesterday, the patient has mild shortness of breath. GI: Abdomen is round non-distended, Abd is soft and non tender. : No signs and/or symptoms were reported regarding the genitourinary system. Derm: Skin is intact, Skin is dry, Skin is normal, Skin temperature is warm. Musculoskeletal: Range of motion: intact in all extremities. Historical: - Allergies: 06:55 No Known Allergies; rg5 - PMHx: 06:55 diabetes mellitus; Hypertensive disorder; Asthma; Dementia; rg5 - Immunization history:: Adult Immunizations unknown. - Infectious Disease History:: Denies. - Social history:: Smoking status: Patient/guardian denies using tobacco. - Family history:: not pertinent. - Hospitalizations: : No recent hospitalization is reported. Screenin:01 [facility] ED Fall Risk Assessment (Adult) History of falling in the last 3 months, rg5 including since admission No falls in past 3 months (0 pts) Confusion or Disorientation Yes (5 pts) Intoxicated or Sedated No (0 pts) Impaired Gait Yes (1 pt) Mobility Assist Device Used No (0 pt) Altered Elimination No (0 pt) Score/Fall Risk Level 3 or more points = High Risk Oriented to surroundings, Maintained a safe environment, Educated pt \T\ family on fall prevention, incl call for assistance when getting out of bed, Hourly rounding (assess needs \T\ fall precautionary measures) done. Abuse screen: Denies threats or abuse. Nutritional screening: No deficits noted. Tuberculosis screening: No symptoms or risk factors identified. Assessment: 07:01 Reassessment: see triage assessment. rg5 07:15 Cardiovascular: Rhythm is regular. Respiratory: Airway is patent Respiratory effort is ko1 even, unlabored, Breath sounds are clear bilaterally. Vital Signs: 06:50 BP 168 / 73; Pulse 88; Resp 17; Temp 98.1(O); Pulse Ox 99% on R/A; Weight 88.45 kg; rg5 Height 5 ft. 5 in. ; Pain 10/10; 07:13 BP 159 / 64; Pulse 82; Resp 15; Pulse Ox 100% on R/A; ko1 08:51 BP 154 / 60; Pulse 80; Resp 16; Pulse Ox 98% ; ko1 06:50 Body Mass Index 32.45 (88.45 kg, 165.1 cm) rg5 06:50 Pain Scale: Adult rg5 ED Course: 06:48 Patient arrived in ED. rg5 06:49 Phi Chaidez RN is Primary Nurse. rg5 06:55 Triage completed. rg5 06:55 Arm band placed on right wrist. rg5 06:58 Darren Burden MD is Attending Physician. rn 07:01 Patient has correct armband on for positive identification. Bed in low position. Call rg5 light in reach. Side rails up X 1. 07:01 No provider procedures requiring assistance completed. Maintain EMS IV. Dressing rg5 intact. Good blood return noted. Gauge \T\ site: 18 gauge left AC. Flushed with 10 mL NS Flushed left antecubital saline lock. 07:06 Basic Metabolic Panel Sent. oe 07:06 CBC with Diff Sent. oe 07:06 LFT's Sent. oe 07:06 Magnesium Sent. oe 07:06 NT PRO-BNP Sent. oe 07:06 Troponin HS Sent. oe 07:13 Provided Education on: call light. Client placed on continuous cardiac and pulse ko1 oximetry monitoring. NIBP monitoring applied. advertising traffic manager on. Door closed. Noise minimized. Lights dimmed. Warm blanket given. Pillow given. 07:13 Initial lab(s) drawn, by ED staff, sent to lab. EKG done, by ED staff, reviewed by juan m Burden MD. 07:35 Primary Nurse role handed off by Phi Chaidez RN eb 07:39 Jennie Barba, RN is Primary Nurse. ko1 08:03 XRAY Chest (1 view) In Process Unspecified. EDMS 08:17 Abdomen In Process Unspecified. EDMS 08:51 intact, bleeding controlled, No redness/swelling at site. Pressure dressing applied. ko1 Administered Medications: 08:41 Drug: LevOfloxacin PO 750 mg PO once Route: PO; ko1 08:53 Follow up: Response: Medication administered at discharge. ko1 Medication: 07:01 VIS not applicable for this client. rg5 Outcome: 08:40 Discharge ordered by . rn 08:51 Discharged to home via wheelchair, with family, ko1 08:51 Condition: stable 08:51 Discharge instructions given to patient, family, Instructed on discharge instructions, follow up and referral plans. medication usage, Demonstrated understanding of instructions, follow-up care, medications, Prescriptions given X 1, 08:52 Patient left the ED. ko1 Signatures: Dispatcher [employer] EDMS Darren Burden MD MD rn Espinosa, Orlando oe Botello, Elizabeth Jennie Barba, RN RN ko1 Phi Chaidez RN RN rg5 Corrections: (The following items were deleted from the chart) 06:57 06:55 PMHx: demetia (Hypertensive disorder); rg5 rg5 08:33 07:13 BP 159 / 64; Pulse 82bpm; Resp 5bpm; Pulse Ox 100% RA; ko1 ko1
--- NOTE | 2024-02-22 08:41 | EDPHYS ---
Physician Documentation [facility] Name: Merlin Colbert Age: 83 yrs Sex: Male : 1940 Arrival Date: 02/22/2024 Time: 06:38 Bed 14 Private MD: ED Physician Darren Burden HPI: 02/21 07:35 This 83 yrs old Male presents to ER via EMS with complaints of Breathing rn Difficulty, Flank Pain. 07:35 The patient complains of pain in the right mid back. The pain does not radiate. Onset: rn The symptoms/episode began/occurred 2 day(s) ago. Associated signs and symptoms: Pertinent negatives: diarrhea, fever, hematuria, nausea, vomiting. Severity of pain: At its worst the pain was mild in the emergency department the pain is unchanged. The patient has not experienced similar symptoms in the past. The patient has not recently seen a physician. Patient reports right-sided flank pain that began 2 days ago. No fever. No nausea/vomiting/diarrhea. Denies shortness of breath. No new cough. No hematemesis or hemoptysis. Denies trauma. Reports pain to right flank and abdomen with deep inspiration. Denies chest pain.. Historical: - Allergies: 06:55 No Known Allergies; rg5 - PMHx: 06:55 diabetes mellitus; Hypertensive disorder; Asthma; Dementia; rg5 - Immunization history:: Adult Immunizations unknown. - Infectious Disease History:: Denies. - Social history:: Smoking status: Patient/guardian denies using tobacco. - Family history:: not pertinent. - Hospitalizations: : No recent hospitalization is reported. ROS: 07:35 Constitutional: Negative for fever, chills, and weight loss, Neck: Negative for injury, rn pain, and swelling, Cardiovascular: Negative for chest pain, palpitations, and edema, Respiratory: Negative for shortness of breath, cough, wheezing, and pleuritic chest pain, Abdomen/GI: Positive for right flank pain MS/Extremity: Negative for injury and deformity, Skin: Negative for injury, rash, and discoloration, Neuro: Negative for headache, numbness, tingling, and seizure, Exam: 07:35 Constitutional: This is a well developed, well nourished patient who is awake, alert, rn and in no acute distress. Cardiovascular: Regular rate and rhythm. No pulse deficits. Respiratory: Speaking full sentences, unlabored. No increased work of breathing, no retractions or nasal flaring. Abdomen/GI: Soft, mild tenderness mid abdomen and right mid abdomen. No peritoneal signs. No masses. Skin: Warm, dry Neuro: Awake and alert, GCS 15 08:39 ECG was reviewed by the Attending Physician. rn Vital Signs: 06:50 BP 168 / 73; Pulse 88; Resp 17; Temp 98.1(O); Pulse Ox 99% on R/A; Weight 88.45 kg; rg5 Height 5 ft. 5 in. ; Pain 10/10; 07:13 BP 159 / 64; Pulse 82; Resp 15; Pulse Ox 100% on R/A; ko1 08:51 BP 154 / 60; Pulse 80; Resp 16; Pulse Ox 98% ; ko1 06:50 Body Mass Index 32.45 (88.45 kg, 165.1 cm) rg5 06:50 Pain Scale: Adult rg5 MDM: 06:58 Patient medically screened. rn 08:39 Differential diagnosis: pneumonia, enteritis, viral syndrome, colitis. Data reviewed: rn vital signs, nurses notes, lab test result(s), EKG, radiologic studies, CT scan, plain films, and as a result, I will discharge patient. 08:39 Care significantly affected by the following chronic conditions: Diabetes, rn Hypertension. Counseling: I had a detailed discussion with the patient and/or guardian regarding the historical points, exam findings, and any diagnostic results supporting the discharge/admit diagnosis, lab results, radiology results, the need for outpatient follow up, to return to the emergency department if symptoms worsen or persist or if there are any questions or concerns that arise at home. Special discussion: I discussed with the patient/guardian in detail that at this point there is no indication for admission to the hospital. It is understood, however, that if the symptoms persist or worsen the patient needs to return immediately for re-evaluation. ED course: Patient with early right lower lobe pneumonia, no oxygen requirement, afebrile, stable vital signs. No clinical signs of sepsis. Will discharge home with p.o. antibiotics and given return precautions.. 02/21 06:53 Order name: Basic Metabolic Panel; Complete Time: 07:50 rt 02/21 06:53 Order name: CBC with Diff; Complete Time: 07:50 rt 02/21 06:53 Order name: LFT's; Complete Time: 07:50 rt 02/21 06:53 Order name: Magnesium; Complete Time: 07:50 rt 02/21 06:53 Order name: NT PRO-BNP; Complete Time: 07:50 rt 02/21 06:53 Order name: Troponin HS; Complete Time: 07:50 rt 02/21 06:53 Order name: XRAY Chest (1 view); Complete Time: 08:30 rt 02/21 07:55 Order name: Abdomen ; Complete Time: 08:30 EDMS 02/21 06:53 Order name: EKG; Complete Time: 06:53 rt 02/21 06:53 Order name: Cardiac monitoring; Complete Time: 07:06 rt 02/21 06:53 Order name: EKG - Nurse/Tech; Complete Time: 07:19 rt 02/21 06:53 Order name: IV Saline Lock; Complete Time: 07:06 rt 02/21 06:53 Order name: Labs collected and sent; Complete Time: 07:19 rt 02/21 06:53 Order name: O2 Per Protocol; Complete Time: 07:06 rt 02/21 06:53 Order name: O2 Sat Monitoring; Complete Time: 07:06 rt EC:39 Rate is 79 beats/min. Rhythm is regular. QRS [place] is Normal. TX interval is normal. QRS rn interval is normal. QT interval is normal. No Q waves. T waves are Normal. No ST changes noted. Clinical impression: Normal ECG. Interpreted by me. Reviewed by me. Administered Medications: 08:41 Drug: LevOfloxacin PO 750 mg PO once Route: PO; ko1 08:53 Follow up: Response: Medication administered at discharge. ko1 Disposition Summary: 02/22/24 08:40 Discharge Ordered Notes: Location: Home rn Problem: new rn Symptoms: have improved rn Condition: Stable rn Diagnosis - Pneumonia, unspecified organism rn Followup: rn - With: Private Physician - When: As needed - Reason: Recheck today's complaints, Re-evaluation by your physician Discharge Instructions: - Discharge Summary Sheet rn - Community-Acquired Pneumonia, Adult rn Forms: - Medication Reconciliation Form rn - Antibiotic defense attorney - Prescription Opioid Use rn - Patient Portal Instructions rn - Leadership Thank You Letter rn Prescriptions: - levofloxacin 500 mg Oral tablet - take 1 tablet ORAL route once daily for 7 days; 7 tablet; Refills: 0, Product rn Selection Permitted Signatures: Dispatcher [employer] EDMS Darren Burden MD MD rn Oliver, Kathy RN RN ko1 Milton Moore MD MD rt Phi Chaidez, RN RN rg5 Corrections: (The following items were deleted from the chart) 06:53 06:53 BASIC METABOLIC PANEL+C.LAB.BRZ ordered. EDMS EDMS 06:53 06:53 CBC+H.LAB.BRZ ordered. EDMS EDMS 06:53 06:53 HEPATIC FUNCTION+C.LAB.BRZ ordered. EDMS EDMS 06:53 06:53 MAGNESIUM+C.LAB.BRZ ordered. EDMS EDMS 06:53 06:53 PROBNP+C.LAB.BRZ ordered. EDMS EDMS 06:53 06:53 Troponin High Sensitivity+C.LAB.BRZ ordered. EDMS EDMS 06:57 06:55 PMHx: demetia (Hypertensive disorder); rg5 rg5 07:55 07:06 Abdomen Pelvis W Con+CT.RAD.BRZ ordered. EDMS EDMS
[2024-02-22] MEDS ORDERED: levoFLOXacin 750 MG TAB ONE (08:42)
[2024-02-22 08:57] VITALS: TEMP 98.1
[2024-02-22 09:01] VITALS: BP 154/60; O2SAT 98
--- NOTE | 2024-02-23 12:50 | EKG ---
Test Date: 2024-02-22 Test Time: 07:15:23 Director Telemetry: CONCHA MEASUREMENT RESULTS: Intervals: Rate: 79 SC: 196 QRSD: 108 QT: 412 QTc: 472 [place]: P: -9 SC: 196 QRS: -4 T: 40 INTERPRETIVE STATEMENTS: Normal sinus rhythm Normal ECG Compared to ECG 07/01/2023 03:24:02 Atrial fibrillation no longer present Ventricular premature complex(es) no longer present Incomplete right bundle-branch block no longer present Prolonged QT interval no longer present Electronically Signed On 02-23-24 12:47:13 CDT by Larry Ozuna
== END 2024-02-22 08:52 | disposition home or self-care (01) ==
LOC: ER 06:38
DX: J18.9 Pneumonia, unspecified organism (principal); E11.9 Type 2 diabetes mellitus without complications; I10 Essential (primary) hypertension; F03.90 Unspecified dementia, unspecified severity, without behavioral disturbance, psychotic disturbance, mood disturbance, and anxiety
CPT/HCPCS: 36415; 71045; 74176; 80048; 80076; 83735; 83880; 84484; 85025; 93005; 99285

== ENCOUNTER 2024-04-07 18:11 | Emergency (ER) | payer OTHER, SELFPAY ==
--- OUTSIDE RECORDS SUMMARY | 2024-04-07 18:16 | XMS REPORT | Continuity of Care Document ---
Author Name Unknown Address [address] [facility] [address] [place] [address] [facility] thconnect Address [address] [facility] [address] [place] [address] Care Team Providers Care 1St Grade Teacher Name Role Phone ED CYR Primary Care Physician Unavailab le ANTHONY MOELLER Attending Clinician Unav ailANTHONY Hernandez Attending Clinician Unav ailable WONG TUTTLE Attending Clinician Unavailable ED CYR Attending Clinician Unavailable ALICIA PAINTING Attending Clinician Unavailable ARMEN WHATLEY Attending Clinician UnavailEd Redman Attending Clinician [phone] Kishore Stewart DO Attending Clinician [phone] KISHORE STEWART Attending Clinician Unavailable Lab, Ang - Db Attending Clinician Unavailable Wong Tuttle MD Attending Clinician [phone] Doctor Unassigned, [place] Attending Clinician U navailANTHONY Hernandez Admitting Clinician Unav ailable Payers Payer Name Policy Type Policy Number Effective Date Expirati on Date Source WELLMED/C DUAL COMP HMO D SNP [id number] 2023 00:00:00 [place] [id number] 2023 00:00:00 MANAGED MEDICARE PPO/FFS GENERIC [id number] 2020 00:00:00 2023 00:00:00 Problems Condition Name Condition Details Condition Category Status Onset Date Resolution Date Last Treatment Date Treating Clinician Comments Source Memory changes Memory changes Disease Active 10-12 00:00: 00 [facility] Paroxysmal atrial fibrillati on Paroxysmal atrial fibrillati on Disease Active 4-04 00:00: 00 [facility] Elevated serum creatinine Elevated serum creatinine Disease Active 18 00:00: 00 [facility] Anemia, unspecifie d type Anemia, unspecifie d type Disease Active 318 00:00: 00 [facility] Chronic right-side d low back pain, unspecifie d whether sciatica present Chronic right-side d low back pain, unspecifie d whether sciatica present Disease Active 318 00:00: 00 [facility] Hx of smoking Hx of smoking Disease Active 18 00:00: 00 [facility] Obesity (BMI 30-39.9) Obesity (BMI 30-39.9) Disease Active 2-07 00:00: 00 [facility] Chronic heart failure with preserved ejection fraction Chronic heart failure with preserved ejection fraction Disease Active 2-07 00:00: 00 [facility] Flu vaccine need Flu vaccine need Disease Active 2-07 00:00: 00 [facility] 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 Disease Active 2-05 00:00: 00 [facility] Type 2 diabetes mellitus with hyperglyce simeon, without long-term current use of insulin Type 2 diabetes mellitus with hyperglyce simeon, without long-term current use of insulin Disease Active 07-07 00:00: 00 [facility] Wheezing Wheezing Disease Active 07-07 00:00: 00 [facility] Essential hypertensi on Essential hypertensi on Disease Active 07-07 00:00: 00 [facility] Atrial fibrillati on, unspecifie d type Atrial fibrillati on, unspecifie d type Disease Active 07-07 00:00: 00 [facility] Mild hyperchole sterolemia Mild hyperchole sterolemia Disease Active 07-07 00:00: 00 [facility] Allergies, Adverse Reactions, Alerts Allergy Name Allergy Type Status Severity Reaction(s) Onset Date Inactive Date Treating Clinician Comments Source NO KNOWN ALLERGIE S Drug Class Active [facility] Social History Social Habit Start Date Stop Date Quantity Comments Source [facility] of tobacco use Cigarette Smoker [facility] Alcoholic beverage intake 2023-10-21 00:00:00 2023-10-21 00:00:00 Ex-drinker (finding) [facility] Alcohol intake 2023-09-11 00:00:00 2023-09-11 00:00:00 Ex-drinker (finding) [facility] Tobacco use and exposure 2023-07-16 00:00:00 2023-07-16 00:00:00 Smokeless tobacco non-user [facility] History of Social function 2023-07-07 00:00:00 2023-07-07 00:00:00 [facility] Sex assigned at 1940 00:00:00 1940 00:00:00 [facility] Smoking Status Start Date Stop Date Source Tobacco smoking consumption unknown [facility] Ex-smoker 2023-07-16 00:00:00 2023-07-16 00:00:00 [facility] Medications Ordered Medication Name Filled Medication Name Start Date Stop Date Current Medication? Ordering Clinician Indication Dosage Frequency Signature (SIG) Comments Components Source divalproex (DEPAKOTE) 125 mg delayed release tablet 10-20 00:00: 00 Yes [id number] 125mg Take 1 tablet by mouth at bedtime. [facility] memantine (NAMENDA) 10 mg tablet 10-20 00:00: 00 Yes [id number] 10mg Take 1 tablet by mouth daily. [facility] lidocaine 1% (PF) (XYLOCAINE) injection 09-29 12:46: 50 09-29 13:04 :19 No ONCE INTRA PROCEDURE, Starting on Fri09/30/23 at 0746, Until Fri09/30/23 at 0804, Routine, CV Intraproce dure [facility] ceFAZolin (ANCEF) injection 09-29 12:40: 00 09-29 13:04 :19 No ONCE INTRA PROCEDURE, Starting on Fri09/30/23 at 0740, Until Fri09/30/23 at 0804, ALYCIA, CV Intraproce dure [facility] ipratropium -albuteroL 0.5 mg-3 mg(2.5 mg base)/3 mL nebulizer solution 09-01 00:00: 00 Yes [id number] 3mL Inhale 3 mL 4 (four) times daily. [facility] fluticasone propion-mingo meteroL (ADVAIR DISKUS) 250-50 mcg/dose inhalation disk 09-01 00:00: 00 Yes [id number] 1{puff} Inhale 1 Puff every 12 (twelve) hours. [facility] montelukast (SINGULAIR) 10 mg tablet 09-01 00:00: 00 Yes [id number] 10mg Take 1 tablet by mouth daily. [facility] gabapentin 100 mg capsule 08-25 00:00: 00 Yes [id number] 100mg Take 1 capsule by mouth 2 (two) times daily as needed for Pain (scale 4-6). [facility] insulin glargine (LANTUS U-100 INSULIN) 100 unit/mL injection 07-14 00:00: 00 Yes [id number] 10U inject 10 Units under the skin at bedtime. [facility] Insulin Syringe-Nee dle U-100 (ADVOCATE SYRINGES) 0.3 mL 30 gauge x 5/16" Syrg 07-14 00:00: 00 Yes [id number] Use as directed [facility] bumetanide 0.5 mg tablet 07-08 00:00: 00 10-20 00:00 :00 No [id number] 4101 .5mg Take 1 tablet by mouth daily. [facility] predniSONE 20 mg tablet 07-08 00:00: 00 07-14 05:59 :00 No [id number] 20mg Take 1 tablet by mouth daily for 5 days. [facility] methylPREDN ISolone (MEDROL, HERO,) 4 mg tablets 07-08 00:00: 00 07-08 00:00 :00 No [id number] Take by mouth SEE-INSTRU CTIONS for 5 days. follow package directions [facility] Fluticasone -Salmeterol (ADVAIR DISKUS) 100-50 mcg/dose inhalation disk 07-07 00:00: 00 09-01 00:00 :00 No [id number] 1{puff} Inhale 1 Puff every 12 (twelve) hours. [facility] albuterol 2.5 mg /3 mL (0.083 %) nebulizer solution 07-07 00:00: 00 09-01 00:00 :00 No [id number] 2.5mg Inhale 3 mL every 4 (four) hours as needed for Wheezing or Shortness of Breath. [facility] VIOS Ene 07-02 00:00: 00 Yes USE DIRECTED FOUR TIMES PER DAY. [facility] levoFLOXaci n 750 mg tablet 07-02 00:00: 00 10-20 00:00 :00 No 750mg Take 1 tablet by mouth daily. [facility] metoprolol tartrate 25 mg tablet 07-02 00:00: 00 10-20 00:00 :00 No TAKE ONE (1) TABLET(S) BY MOUTH TWICE A DAY AT 6AM AND 6PM. [facility] ipratropium 0.02 % nebulizer solution 07-02 00:00: 00 09-01 00:00 :00 No INHALE ONE (1) VIAL VIA NEBULIZER EVERY 6 HOURS NEEDED. [facility] albuterol 2.5 mg /3 mL (0.083 %) nebulizer solution 07-02 00:00: 00 07-07 00:00 :00 No INHALE ONE (1) VIAL VIA NEBULIZER EVERY 6 HOURS NEEDED FOR SHORTNESS OF BREATH. [facility] TRUEPLUS LANCETS 33 gauge Misc 2022-06 00:00: 00 Yes [facility] amLODIPine 10 mg tablet 2022-06 00:00: 00 Yes [facility] atorvastati n 20 mg tablet 2022-06 00:00: 00 Yes [facility] glipiZIDE 5 mg tablet 2022-06 00:00: 00 Yes [facility] XARELTO 15 mg tablet 2022-06 00:00: 00 10-20 00:00 :00 No [facility] losartan 100 mg tablet 2022-06 00:00: 00 Yes [facility] Immunizations Ordered Immunization Name Filled Immunization Name Date Status Comments Source Influenza Virus Vaccine,quad Im,preserve Free 65+ (FLUAD) Unknown Completed [facility] Influenza Virus Vaccine,quad Im,preserve Free 65+ (FLUAD) Unknown Completed [facility] Influenza Virus Vaccine,quad Im,preserve Free 65+ (FLUAD) Unknown Completed [facility] Influenza Virus Vaccine,quad Im,preserve Free 65+ (FLUAD) Unknown Completed [facility] Influenza Virus Vaccine,quad Im,preserve Free 65+ (FLUAD) Unknown Completed [facility] Pneumococcal 20 Conjugate, PCV20 (Prevnar 20) Unknown Completed [facility] SARS-COV-2 COVID 19 DANIEL SUCROSE VACCINE , , 0.3 ML (30 MCG), IM PFIZER (BECERRA TOP) Unknown Completed [facility] Influenza Virus Vaccine,quad Im,preserve Free 65+ (FLUAD) Unknown Completed [facility] Pneumococcal 20 Conjugate, PCV20 (Prevnar 20) Unknown Completed [facility] SARS-COV-2 COVID 19 DANIEL SUCROSE VACCINE , , 0.3 ML (30 MCG), IM PFIZER (BECERRA TOP) Unknown Completed [facility] Influenza Virus Vaccine,quad Im,preserve Free 65+ (FLUAD) Unknown Completed [facility] Pneumococcal 20 Conjugate, PCV20 (Prevnar 20) Unknown Completed [facility] SARS-COV-2 COVID 19 DANIEL SUCROSE VACCINE , 0.3 ML (30 MCG), IM PFIZER (BECERRA TOP) Unknown Completed [facility] Influenza Virus Vaccine,quad Im,preserve Free 65+ (FLUAD) Unknown Completed [facility] Pneumococcal 20 Conjugate, PCV20 (Prevnar 20) Unknown Completed [facility] SARS-COV-2 COVID 19 DANIEL SUCROSE VACCINE 12+, , 0.3 ML (30 MCG), IM PFIZER (BECERRA TOP) Unknown Completed [facility] Influenza Virus Vaccine,quad Im,preserve Free 65+ (FLUAD) Unknown Completed [facility] Pneumococcal 20 Conjugate, PCV20 (Prevnar 20) Unknown Completed [facility] SARS-COV-2 COVID 19 DANIEL SUCROSE VACCINE 12, , 0.3 ML (30 MCG), IM PFIZER (BECERRA TOP) Unknown Completed [facility] Influenza Virus Vaccine,quad Im,preserve Free 65+ (FLUAD) Unknown Completed [facility] Pneumococcal 20 Conjugate, PCV20 (Prevnar 20) Unknown Completed [facility] SARS-COV-2 COVID 19 DANIEL SUCROSE VACCINE , , 0.3 ML (30 MCG), IM PFIZER (BECERRA TOP) Unknown Completed [facility] Influenza Virus Vaccine,quad Im,preserve Free 65+ (FLUAD) Unknown Completed [facility] Pneumococcal 20 Conjugate, PCV20 (Prevnar 20) Unknown Completed [facility] SARS-COV-2 COVID 19 DANIEL SUCROSE VACCINE , , 0.3 ML (30 MCG), IM PFIZER (BECERRA TOP) Unknown Completed [facility] Influenza Virus Vaccine,quad Im,preserve Free 65+ (FLUAD) Unknown Completed [facility] Pneumococcal 20 Conjugate, PCV20 (Prevnar 20) Unknown Completed [facility] SARS-COV-2 COVID 19 DANIEL SUCROSE VACCINE , , 0.3 ML (30 MCG), IM PFIZER (BECERRA TOP) Unknown Completed [facility] Influenza Virus Vaccine,quad Im,preserve Free 65+ (FLUAD) Unknown Completed [facility] Pneumococcal 20 Conjugate, PCV20 (Prevnar 20) Unknown Completed [facility] SARS-COV-2 COVID 19 DANIEL SUCROSE VACCINE , , 0.3 ML (30 MCG), IM PFIZER (BECERRA TOP) Unknown Completed [facility] Influenza Virus Vaccine,quad Im,preserve Free 65+ (FLUAD) Unknown Completed [facility] Pneumococcal 20 Conjugate, PCV20 (Prevnar 20) Unknown Completed [facility] SARS-COV-2 COVID 19 DANIEL SUCROSE VACCINE , , 0.3 ML (30 MCG), IM PFIZER (BECERRA TOP) Unknown Completed [facility] Influenza Virus Vaccine,quad Im,preserve Free 65+ (FLUAD) Unknown Completed [facility] Pneumococcal 20 Conjugate, PCV20 (Prevnar 20) Unknown Completed [facility] SARS-COV-2 COVID 19 DANIEL SUCROSE VACCINE , , 0.3 ML (30 MCG), IM PFIZER (BECERRA TOP) Unknown Completed [facility] Influenza Virus Vaccine,quad Im,preserve Free 65+ (FLUAD) Unknown Completed [facility] Pneumococcal 20 Conjugate, PCV20 (Prevnar 20) Unknown Completed [facility] SARS-COV-2 COVID 19 DANIEL SUCROSE VACCINE , , 0.3 ML (30 MCG), IM PFIZER (BECERRA TOP) Unknown Completed [facility] Influenza Virus Vaccine,quad Im,preserve Free 65+ (FLUAD) Unknown Completed [facility] Pneumococcal 20 Conjugate, PCV20 (Prevnar 20) Unknown Completed [facility] SARS-COV-2 COVID 19 DANIEL SUCROSE VACCINE , , 0.3 ML (30 MCG), IM PFIZER (BECERRA TOP) Unknown Completed [facility] Influenza Virus Vaccine,quad Im,preserve Free 65+ (FLUAD) Unknown Completed [facility] Pneumococcal 20 Conjugate, PCV20 (Prevnar 20) Unknown Completed [facility] SARS-COV-2 COVID 19 DANIEL SUCROSE VACCINE , , 0.3 ML (30 MCG), IM PFIZER (BECERRA TOP) Unknown Completed [facility] Influenza Virus Vaccine,quad Im,preserve Free 65+ (FLUAD) Unknown Completed [facility] Pneumococcal 20 Conjugate, PCV20 (Prevnar 20) Unknown Completed [facility] SARS-COV-2 COVID 19 DANIEL SUCROSE VACCINE , , 0.3 ML (30 MCG), IM PFIZER (BECERRA TOP) Unknown Completed [facility] Vital Signs Vital Name Observation Time Observation Value Comments S ource Systolic blood pressure 2023-10-21 13:09:00 155 mm[Hg] [facility] Diastolic blood pressure 2023-10-21 13:09:00 73 mm[Hg] [facility] Heart rate 2023-10-21 13:01:00 84 /min [facility] Respiratory rate 2023-10-21 13:01:00 18 /min [facility] Body height 2023-10-21 13:01:00 [facility].1 cm [facility] weight 2023-10-21 13:01:00 87.363 kg [facility] BMI 2023-10-21 13:01:00 32.05 kg/m2 [facility] Oxygen saturation in Arterial blood by Pulse oximetry 2023-10-21 13:01:00 95 /min [facility] Systolic blood pressure 2023-10-13 20:10:00 145 mm[Hg] [facility] Diastolic blood pressure 2023-10-13 20:10:00 70 mm[Hg] [facility] Heart rate 2023-10-13 20:09:00 79 /min [facility] Body temperature 2023-10-13 20:09:00 36.89 Irena [facility] Respiratory rate 2023-10-13 20:09:00 18 /min [facility] Body height 2023-10-13 20:09:00 165.1 cm [facility] Body weight 2023-10-13 20:09:00 89.449 kg [facility] BMI 2023-10-13 20:09:00 32.82 kg/m2 [facility] Oxygen saturation in Arterial blood by Pulse oximetry 2023-10-13 20:09:00 96 /min [facility] Systolic blood pressure 2023-09-30 14:05:00 162 mm[Hg] [facility] Diastolic blood pressure 2023-09-30 14:05:00 67 mm[Hg] [facility] Heart rate 2023-09-30 14:05:00 69 /min [facility] Respiratory rate 2023-09-30 14:05:00 18 /min [facility] Oxygen saturation in Arterial blood by Pulse oximetry 2023-09-30 14:05:00 99 /min [facility] Body temperature 2023-09-30 12:02:00 36.89 Irena [facility] Body height 2023-09-30 12:02:00 165.1 cm [facility] Body weight 2023-09-30 12:02:00 89.812 kg [facility] BMI 2023-09-30 12:02:00 32.95 kg/m2 [facility] Heart rate 2023-09-30 13:05:00 70 /min [facility] Respiratory rate 2023-09-30 13:05:00 19 /min [facility] Oxygen saturation in Arterial blood by Pulse oximetry 2023-09-30 13:05:00 98 /min [facility] Systolic blood pressure 2023-09-30 12:02:00 165 mm[Hg] [facility] Diastolic blood pressure 2023-09-30 12:02:00 79 mm[Hg] [facility] Body temperature 2023-09-30 12:02:00 36.89 Irena [facility] Body height 2023-09-30 12:02:00 165.1 cm [facility] Body weight 2023-09-30 12:02:00 89.812 kg [facility] BMI 2023-09-30 12:02:00 32.95 kg/m2 [facility] Systolic blood pressure 2023-09-11 20:05:00 138 mm[Hg] [facility] Diastolic blood pressure 2023-09-11 20:05:00 69 mm[Hg] [facility] Heart rate 2023-09-11 20:04:00 77 /min [facility] Body temperature 2023-09-11 20:04:00 36.94 Irena [facility] Respiratory rate 2023-09-11 20:04:00 23 /min [facility] Body height 2023-09-11 20:04:00 165.1 cm [facility] Body weight 2023-09-11 20:04:00 88.451 kg [facility] BMI 2023-09-11 20:04:00 32.45 kg/m2 [facility] Oxygen saturation in Arterial blood by Pulse oximetry 2023-09-11 20:04:00 97 /min [facility] Systolic blood pressure 2023-09-02 16:21:00 166 mm[Hg] [facility] Diastolic blood pressure 2023-09-02 16:21:00 81 mm[Hg] [facility] Heart rate 2023-09-02 16:21:00 77 /min [facility] Respiratory rate 2023-09-02 16:21:00 17 /min [facility] Body height 2023-09-02 16:21:00 165.1 cm [facility] Body weight 2023-09-02 16:21:00 84.369 kg [facility] BMI 2023-09-02 16:21:00 30.95 kg/m2 [facility] Oxygen saturation in Arterial blood by Pulse oximetry 2023-09-02 16:21:00 99 /min [facility] Systolic blood pressure 2023-08-25 21:08:00 171 mm[Hg] [facility] Diastolic blood pressure 2023-08-25 21:08:00 69 mm[Hg] [facility] Heart rate 2023-08-25 21:07:00 76 /min [facility] Body temperature 2023-08-25 21:07:00 36.72 Irena [facility] Respiratory rate 2023-08-25 21:07:00 18 /min [facility] Body height 2023-08-25 21:07:00 165.1 cm [facility] Body weight 2023-08-25 21:07:00 87.499 kg [facility] BMI 2023-08-25 21:07:00 32.10 kg/m2 [facility] Oxygen saturation in Arterial blood by Pulse oximetry 2023-08-25 21:07:00 97 /min [facility] Systolic blood pressure 2023-08-18 18:57:00 147 mm[Hg] [facility] Diastolic blood pressure 2023-08-18 18:57:00 62 mm[Hg] [facility] Heart rate 2023-08-18 18:57:00 70 /min [facility] Body height 2023-08-18 18:57:00 165.1 cm [facility] Body weight 2023-08-18 18:57:00 88.134 kg [facility] BMI 2023-08-18 18:57:00 32.33 kg/m2 [facility] Oxygen saturation in Arterial blood by Pulse oximetry 2023-08-18 18:57:00 97 /min [facility] Systolic blood pressure 2023-07-16 20:15:00 133 mm[Hg] [facility] Diastolic blood pressure 2023-07-16 20:15:00 64 mm[Hg] [facility] Heart rate 2023-07-16 20:15:00 77 /min [facility] Body height 2023-07-16 20:15:00 165.1 cm [facility] Body weight 2023-07-16 20:15:00 89.858 kg [facility] BMI 2023-07-16 20:15:00 32.97 kg/m2 [facility] Oxygen saturation in Arterial blood by Pulse oximetry 2023-07-16 20:15:00 97 /min [facility] Systolic blood pressure 2023-07-14 14:16:00 126 mm[Hg] [facility] Diastolic blood pressure 2023-07-14 14:16:00 82 mm[Hg] [facility] Heart rate 2023-07-14 14:16:00 66 /min [facility] Body temperature 2023-07-14 14:16:00 36.72 Irena [facility] Respiratory rate 2023-07-14 14:16:00 18 /min [facility] Body height 2023-07-14 14:16:00 162.6 cm [facility] Body weight 2023-07-14 14:16:00 87.952 kg [facility] BMI 2023-07-14 14:16:00 33.28 kg/m2 [facility] Oxygen saturation in Arterial blood by Pulse oximetry 2023-07-14 14:16:00 98 /min [facility] Systolic blood pressure 2023-07-07 21:15:00 154 mm[Hg] [facility] Diastolic blood pressure 2023-07-07 21:15:00 64 mm[Hg] [facility] Heart rate 2023-07-07 21:14:00 75 /min [facility] Body temperature 2023-07-07 21:14:00 36.44 Irena [facility] Respiratory rate 2023-07-07 21:14:00 18 /min [facility] Body height 2023-07-07 21:14:00 167.6 cm [facility] Body weight 2023-07-07 21:14:00 89.812 kg [facility] BMI 2023-07-07 21:14:00 31.96 kg/m2 [facility] Oxygen saturation in Arterial blood by Pulse oximetry 2023-07-07 21:14:00 95 /min [facility] Procedures Procedure Date / Time Performed Performing Clinician Source ELECTROPHYSIOLOGY PROCEDURE 2023-09-30 13:04:08 Lemuel [facility] BASIC METABOLIC PANEL (NA, K, CL, CO2, GLUCOSE, BUN, CREATININE, CA) 2023-09-30 11:52:[address] [facility] 2023-09-30 11:52:00 Lemuel [facility] PROTHROMBIN TIME / INR 2023-09-30 11:52:[address] [facility] BASIC METABOLIC PANEL (NA, K, CL, CO2, GLUCOSE, BUN, CREATININE, CA) 2023-09-30 11:52:[address] [facility] WITH DIFF 2023-09-30 11:52:00 Lemuel [facility] PROTHROMBIN TIME / INR 2023-09-30 11:52:00 Anthony Moeller [facility] CBC WITH DIFF 2023-08-25 22:01:00 Ed Cyr [facility] SARS-COV-2 COVID 19 DANIEL SUCROSE VACCINE 12+, , 0.3 ML (30 MCG), IM PFIZER (BECERRA TOP) 2023-08-25 21:25:45 Ed Cyr [facility] PNEUMOCOCCAL 20 CONJUGATE (PREVNAR 20) VACCINE 2023-08-25 21:25:18 Ed Cyr [facility] EXTERNAL PROVIDER - ADC CARDIOLOGY 2023-07-18 06:01:00 Doctor Unassigned, [place] [facility] FLU VACC(),65+YR,0.5 ML,IM,ADJUVANTED,QUAD(FLUAD ) 2023-07-16 20:31:06 Wong Tuttle [facility] HB ECG ROUTINE & RHYTHM STRIP 2023-07-16 20:11[facility] 2023-07-07 22:48:44 Ed Cyr [facility] Encounters Start Date/Time End Date/Time Encounter Type Admission Type Attending Clinicians Care Facility Care Department Encounter ID Source 2024-04-08 15:00:00 2024-04-08 15:00:00 Outpatient IVAN RIVER CHOCKALINGA M [facility] [id number] [facility] 2024-03-11 15:00:00 2024-03-11 15:00:00 Outpatient IVAN RIVER CHOCKALINGA [facility] [id number] [facility] 2024-02-18 15:00:00 2024-02-18 15:00:00 Outpatient WONG BAILEY [facility] [id number] [facility] 2024-01-13 16:30:00 2024-01-13 16:30:00 Outpatient ED MITCHELL [facility] [id number] [facility] [facility] 03:35:00 2023-12-02 23:59:00 Outpatient IVAN MOELLER CHOCKALINGA M [facility] [id number] [facility] 2023-12-02 03:35:00 2023-12-02 23:59:00 Hospital Encounter Ivan Moeller [facility] 1.2.840.114 350.1.13.10 4.2.7.2.686 [id number] [facility] 2023-12-02 03:30:00 2023-12-02 23:59:00 Hospital Encounter Ivan Moeller [facility] 1.2.840.114 350.1.13.10 4.2.7.2.686 [id number] [facility] 2023-11-24 13:00:00 2023-11-24 13:00:00 Outpatient ALICIA DUMONT [facility] [id number] [facility] 2023-11-01 03:30:00 2023-11-01 23:59:00 Outpatient R IVAN MOELLER CHOCKALINGA M [facility] [id number] [facility] 2023-11-01 03:30:00 2023-11-01 23:59:00 Hospital Encounter Ivan Moeller [facility] 1.2.840.114 350.1.13.10 4.2.7.2.686 [id number] [facility] 2023-10-28 16:30:00 2023-10-28 16:30:00 Outpatient ARMEN PERRIN [facility] [id number] [facility] 2023-10-21 08:30:00 2023-10-21 08:38:01 Outpatient ALICIA DUMONT [facility] [id number] [facility] 2023-10-21 08:30:00 2023-10-21 08:38:01 Office Visit Alicia Painting [facility] 1.2840.114 350.1.13.10 4.2.7.2.686 [id number] [facility] 2023-10-13 00:00:00 2023-10-13 16:04:07 Letter (Out) [facility] 1.2840.114 350.1.13.10 4.2.7.2.686 [id number] [facility] 2023-10-13 15:30:00 2023-10-13 15:30:00 Office Visit Ed Cyr [facility] NAHED?[facility] 1.284.114 350.1.13.10 4.2.7.2.686 [id number] [facility] 2023-10-13 15:30:00 2023-10-13 15:28:16 Outpatient R ED CYR [facility] [id number] [facility] 2023-10-07 16:00:00 2023-10-07 16:00:00 Outpatient R ED CYR [facility] [id number] [facility] 2023-09-30 06:38:00 2023-09-30 09:17:00 Outpatient R IVAN MOELLER CHOCKALINGA [facility] [id number] [facility] 2023-09-30 06:38:00 2023-09-30 09:17:00 Hospital Encounter Ivan Moeller [facility] ([facility]) 1.2840.114 350.1.13.10 4.2.7.2.686 [id number] [facility] 2023-09-30 07:30:00 2023-09-30 08:15:[address] [facility] ([facility]) 1.2.840.114 350.1.13.10 4.2.7.2.686 [id number] [facility] 2023-09-23 00:00:00 2023-09-23 00:00:00 Outpatient ED MITCHELL [facility] [id number] [facility] 2023-09-11 15:00:00 2023-09-11 15:29:49 Outpatient R IVAN MOELLER CHOCKALINGA M [facility] [id number] [facility] 2023-09-11 15:00:00 2023-09-11 15:29:49 Office Visit Ivan Moeller [facility] 1.2.840.114 350.1.13.10 4.2.7.2.686 [id number] [facility] 2023-09-04 00:00:00 2023-09-04 00:00:00 Outpatient ED MITCHLEL [facility] [id number] [facility] 2023-09-02 11:30:00 2023-09-02 12:00:00 Office Visit Kishore Stewart [facility] 1.2.840.114 350.1.13.10 4.2.7.2.686 [id number] [facility] 2023-09-02 11:30:00 2023-09-02 11:30:00 Outpatient R KISHORE STEWART JOSEPH [facility] [id number] [facility] 2023-08-26 08:00:00 2023-08-26 08:03:20 Outpatient ED MITCHELL [facility] [id number] [facility] 2023-08-26 08:00:00 2023-08-26 08:03:20 Senior Commissary Agent [facility] 1.2.840.114 350.1.13.10 4.2.7.2.686 [id number] [facility] 2023-08-26 00:00:00 2023-08-26 00:00:00 Telephone Ed Cyr [facility] NA[facility] 1.2840.114 350.1.13.10 4.2.7.2.686 [id number] [facility] 2023-08-25 16:34:09 2023-08-25 23:59:00 Hospital Encounter Ed Cyr [facility] 1.840.114 350.1.13.10 4.2.7.2.686 [id number] [facility] 2023-08-25 17:00:00 2023-08-25 17:15:00 Senior Commissary Agent Visit Lab, Nahun Campuzano [facility] 1.0.114 350.1.13.10 4.2.7.2.686 [id number] [facility] 2023-08-25 16:00:00 2023-08-25 16:38:24 Outpatient R ED CYR [facility] [id number] [facility] 2023-08-25 16:00:00 2023-08-25 16:38:24 Office Visit Ed Cyr [facility] NA[facility] 1.840.114 350.1.13.10 4.2.7.2.686 [id number] [facility] 2023-08-18 14:20:00 2023-08-18 14:40:00 [facility] 1.840.114 350.1.13.10 4.2.7.2.686 [id number] [facility] 2023-08-18 14:20:00 2023-08-18 14:09:50 [facility] [id number] [facility] 2023-08-05 00:00:00 2023-08-05 00:00:00 Telephone Ed Cyr [facility] NA[facility] 1.2.840.114 350.1.13.10 4.2.7.2.686 [id number] [facility] 2023-07-18 00:00:00 2023-07-18 00:00:00 Orders Only Doctor Unassigned, [place] [facility] 1..840.114 350.1.13.10 4.2.7.2.686 [id number] [facility] 2023-07-16 14:00:00 2023-07-16 14:36:16 [facility] 1..840.114 350.1.13.10 4.2.7.2.686 [id number] [facility] 2023-07-16 14:00:00 2023-07-16 14:36:16 Outpatient R [facility] [id number] [facility] 2023-07-14 08:30:00 2023-07-14 08:31:10 Office Visit Ed Cyr [facility] NA[facility]ED?[facility] 1.2.840.114 350.1.13.10 4.2.7.2.686 [id number] [facility] 2023-07-14 08:30:00 2023-07-14 08:31:10 Outpatient R ED CYR [facility] [id number] [facility] 2023-07-08 00:00:00 2023-07-08 00:00:00 Telephone Ed Cyr [facility] NA[facility] 1.2840.114 350.1.13.10 4.2.7.2.686 [id number] [facility] 2023-07-08 00:00:00 2023-07-08 00:00:00 Telephone Ed Cyr [facility] 1.2840.114 350.1.13.10 4.2.7.2.686 [id number] [facility] 2023-07-08 00:00:00 2023-07-08 00:00:00 Telephone Ed [facility] 1.2840.114 350.1.13.10 4.2.7.2.686 [id number] [facility] 2023-07-07 15:48:29 2023-07-07 23:59:00 [facility] 1.2840.114 350.1.13.10 4.2.7.2.686 [id number] [facility] 2023-07-07 15:45:00 2023-07-07 16:02:03 Senior Commissary Agent Visit Lab, Ang - Justen Camarillolizette [facility] NAHED?[facility] 1.2840.114 350.1.13.10 4.2.7.2.686 [id number] [facility] 2023-07-07 15:00:00 2023-07-07 15:48:52 Outpatient R GERED [facility] [id number] [facility] 2023-07-07 15:00:00 2023-07-07 15:30:00 Office Visit Ger [facility] NAHED?[facility] 1.2840.114 350.1.13.10 4.2.7.2.686 [id number] [facility] Results Test Description Test Time Test [...] no acute complications. Device Characteristics: Loop Recorder: PhishMe Model M312 R-waves 0.12 mV MRI Compatible Final Programming: Sensitivity 0.0037 mVBlank After Sense: 160 msecAF 4 minBrady 40 bpm at 1 secTachy 170 bpm at 5 secPause 3 sec or less Impression: Successful Implantation of an Implantable Loop Recorder Bipin Moeller [facility] (NA, K, CL, CO2, GLUCOSE, BUN, CREATININE, CA)2023-09-30 12:27:54* Test Item Value Reference Range Interpretation Comme nts NA (test code = 4803622223) 135 mmol/L 135-145 K (test code = 5271266055) 3.8 mmol/L 3.5-5.0 CL (test code = 5248454926) 104 mmol/L 98-108 CO2 TOTAL (test code = 7176782302) 24 mmol/L 23-31 AGAP (test code = 0810607054) 7 2-16 BUN (test code = 4556737178) 38 mg/dL 7-23 H GLUCOSE (test code = 4050177110) 209 mg/dL 70-110 H CREATININE (test code = 2160-0) 1.62 mg/dL 0.60-1.25 H CALCIUM (test code = 3369129648) 9.2 mg/dL 8.6-10.6 eGFR (test code = 79346-5) 41.6 mL/min/1.73m2 CKD-EPI eGFR (2020). Assuming creatinine has been stable day-to-day for at least three months, the eGFR indicates Category G3b (30 - 44 mL/min/1.73 m2) Lab Interpretation (test code = 08452-8) [facility]normal [facility] / [id number] 12:13:15* Test Item Value Reference Range Interpretation Comme nts PROTIME PATIENT (test code = 5964-2) 10.6 10.1-12.6 INR (test code = 6301-6) 0.9 Normal INR <1.1; Warfarin Therapeutic range 2.0 to 3.0 or 2.5 to 3.5, depending upon the indications. Lab Interpretation (test code = 30707-5) Normal [facility] / [id number] 12:13:15* Test Item Value Reference Range Interpretation Comme nts PROTIME PATIENT (test code = 5964-2) 10.6 10.1-12.6 INR (test code = 6301-6) 0.9 Normal INR <1.1; Warfarin Therapeutic range 2.0 to 3.0 or 2.5 to 3.5, depending upon the indications. Lab Interpretation (test code = 99977-9) Normal [facility] with [id number] 12:01:11* Test Item Value Reference Range Interpretation Comme [facility] WBC (test code = 6690-2) 8.56 4.20-10.70 RBC (test code = 789-8) 4.15 4.26-5.52 L HGB (test code = 718-7) 10.7 g/dL 12.2-16.4 L HCT (test code = 4544-3) 34.0 % 38.4-49.3 L MCV (test code = 787-2) 81.9 fL 81.7-95.6 MCH (test code = 785-6) 25.8 pg 26.1-32.7 L MCHC (test code = 786-4) 31.5 g/dL 31.2-35.0 RDW-SD (test code = 21882-1) 42.5 fL 38.5-51.6 RDW-CV (test code = 788-0) 14.5 % 12.1-15.4 PLT (test code = 777-3) 211 150-328 MPV (test code = 83439-8) 11.5 fL 9.8-13.0 NRBC/100 WBC (test code = 1866543917) 0.0 0.0-10.0 NRBC x10^3 (test code = 9094720095) See_Comment [Automated messa ge] The system which generated this result transmitted reference range: 10*3/?L. The reference range was not used to interpret this result as normal/abnormal. GRAN MAT (NEUT) % (test code = 770-8) 61.6 % IMM GRAN % (test code = 1338185310) 0.20 % LYMPH % (test code = 736-9) 22.8 % MONO % (test code = 5905-5) 12.4 % EOS % (test code = 713-8) 2.1 % BASO % (test code = 706-2) 0.9 % GRAN MAT x10^3(ANC) (test code = 7997064306) 5.27 10*3/uL 1.99-6.95 IMM GRAN x10^3 (test code = 4473998611) 0.00-0.06 LYMPH x10^3 (test code = 731-0) 1.95 10*3/uL 1.09-3.23 MONO x10^3 (test code = 742-7) 1.06 10*3/uL 0.36-1.02 H EOS x10^3 (test code = 711-2) 0.18 10*3/uL 0.06-0.53 BASO x10^3 (test code = 704-7) 0.08 10*3/uL 0.01-0.09 Lab Interpretation (test code = 73829-2) Abnormal [facility] with [id number] 12:01:11* Test Item Value Reference Range Interpretation [...] 31.5 g/dL 31.2-35.0 RDW-SD (test code = 17832-1) 42.5 fL 38.5-51.6 RDW-CV (test code = 788-0) 14.5 % 12.1-15.4 PLT (test code = 777-3) 211 150-328 MPV (test code = 91914-6) 11.5 fL 9.8-13.0 NRBC/100 WBC (test code = 9528944906) 0.0 0.0-10.0 NRBC x10^3 (test code = 1087727831) See_Comment [Automated messa ge] The system which generated this result transmitted reference range: 10*3/?L. The reference range was not used to interpret this result as normal/abnormal. GRAN MAT (NEUT) % (test code = 770-8) 61.6 % IMM GRAN % (test code = 5771698323) 0.20 % LYMPH % (test code = 736-9) 22.8 % MONO % (test code = 5905-5) 12.4 % EOS % (test code = 713-8) 2.1 % BASO % (test code = 706-2) 0.9 % GRAN MAT x10^3(ANC) (test code = 4637258690) 5.27 10*3/uL 1.99-6.95 IMM GRAN x10^3 (test code = 4938045243) 0.00-0.06 LYMPH x10^3 (test code = 731-0) 1.95 10*3/uL 1.09-3.23 MONO x10^3 (test code = 742-7) 1.06 10*3/uL 0.36-1.02 H EOS x10^3 (test code = 711-2) 0.18 10*3/uL 0.06-0.53 BASO x10^3 (test code = 704-7) 0.08 10*3/uL 0.01-0.09 Lab Interpretation (test code = 40936-3) Abnormal [facility] with [id number] 02:48:46* Test Item Value Reference Range Interpretation [...] 31.3 g/dL 31.2-35.0 RDW-SD (test code = 62312-0) 45.9 fL 38.5-51.6 RDW-CV (test code = 788-0) 14.6 % 12.1-15.4 PLT (test code = 777-3) 263 150-328 MPV (test code = 10950-9) 12.1 fL 9.8-13.0 NRBC/100 WBC (test code = 3924768742) 0.0 0.0-10.0 NRBC x10^3 (test code = 7547691937) See_Comment [Automated messa ge] The system which generated this result transmitted reference range: 10*3/?L. The reference range was not used to interpret this result as normal/abnormal. GRAN MAT (NEUT) % (test code = 770-8) 61.4 % IMM GRAN % (test code = 4004879245) 0.30 % LYMPH % (test code = 736-9) 24.7 % MONO % (test code = 5905-5) 8.8 % EOS % (test code = 713-8) 3.8 % BASO % (test code = 706-2) 1.0 % GRAN MAT x10^3(ANC) (test code = 7316908993) 5.48 10*3/uL 1.99-6.95 IMM GRAN x10^3 (test code = 0451678109) 0.03 10*3/uL 0.00-0.06 LYMPH x10^3 (test code = 731-0) 2.21 10*3/uL 1.09-3.23 MONO x10^3 (test code = 742-7) 0.79 10*3/uL 0.36-1.02 EOS x10^3 (test code = 711-2) 0.34 10*3/uL 0.06-0.53 BASO x10^3 (test code = 704-7) 0.09 10*3/uL 0.01-0.09 Lab Interpretation (test code = 81289-9) Abnormal [facility] with [id number] 02:48:46* Test Item Value Reference Range Interpretation [...] 31.3 g/dL 31.2-35.0 RDW-SD (test code = 91763-6) 45.9 fL 38.5-51.6 RDW-CV (test code = 788-0) 14.6 % 12.1-15.4 PLT (test code = 777-3) 263 150-328 MPV (test code = 07441-0) 12.1 fL 9.8-13.0 NRBC/100 WBC (test code = 7777930055) 0.0 0.0-10.0 NRBC x10^3 (test code = 9909385211) See_Comment [Automated messa ge] The system which generated this result transmitted reference range: 10*3/?L. The reference range was not used to interpret this result as normal/abnormal. GRAN MAT (NEUT) % (test code = 770-8) 61.4 % IMM GRAN % (test code = 6099969404) 0.30 % LYMPH % (test code = 736-9) 24.7 % MONO % (test code = 5905-5) 8.8 % EOS % (test code = 713-8) 3.8 % BASO % (test code = 706-2) 1.0 % GRAN MAT x10^3(ANC) (test code = 4165061557) 5.48 10*3/uL 1.99-6.95 IMM GRAN x10^3 (test code = 7161966073) 0.03 10*3/uL 0.00-0.06 LYMPH x10^3 (test code = 731-0) 2.21 10*3/uL 1.09-3.23 MONO x10^3 (test code = 742-7) 0.79 10*3/uL 0.36-1.02 EOS x10^3 (test code = 711-2) 0.34 10*3/uL 0.06-0.53 BASO x10^3 (test code = 704-7) 0.09 10*3/uL 0.01-0.09 Lab Interpretation (test code = 65677-9) [facility]normal [facility] 2 [id number] 03:17:49EXAM: XR CHEST 2 VW COMPARISON: None [...] Moderate degenerativechanges of the bilateral acromioclavicular joints. [facility] Notes Date/Time Note Provider Source 2023-08-26 13:04:13 Images from the original note were not included. LUCÍA Mcknight 08/26/2023 11:53 AM CDT Shows possible wedging of lumbar which is where his pain is, Recommends an MRI , will order MRI and start him on Gabapentin 100mg BID and see if it helps Lucina Villatoro LVN [facility] 2023-08-26 11:53:31 MRI ordered for lumbar, and gabapentin sent for pain control [facility] 2023-08-26 08:00:00 Images from the original note were not included. Venipuncture collection performed by clean technique on the right anticubitus. Total of 1 attempts were made. Slight pressure and a bandage/dressing were applied to the site(s). The patient experienced no complications. The following specimens were processed according to instructions and sent to [facility] laboratories per lab order on 08/26/2023: LT BLUE SST 1 RED LAV PPT DK GREEN (LiHep) DK GREEN (SodH) BECERRA DK BLUE (K2) DK BLUE (S) ACD Blood Culture NIPT/NTD [facility] 2023-08-25 17:00:00 Images from the original note were not included. Venipuncture collection performed by clean technique on the left anticubitus. Total of 1 attempts were made. Slight pressure and a bandage/dressing were applied to the site(s). The patient experienced no complications. The following specimens were processed according to instructions and sent to [facility] laboratories per lab order on today: LT BLUE SST RED LAV 2 PPT lt GREEN (LiHep) 1 DK GREEN (SodH) BECERRA DK BLUE (K2) DK BLUE (S) ACD Blood Culture NIPT/NTD Patient has been identified by name and was provided with cup, antiseptic towelette, and clean catch instructions. 1 urine specimen(s) sent. Unpreserved Urine Culture Aptima tube Other urine microalbumin [facility] 2023-08-05 09:55:30 Patient has been notified of test results/ recommendations per Ger Cox Gave verbal understanding [facility] 2023-08-05 09:16:15 Colon referral placed for anemia [facility] 2023-07-09 11:34:17 Patient has been notified of new medication sent to pharmacy per Ger Cox Gave verbal understanding [facility] 2023-07-08 15:29:22 I sent over Bumex for pt to start will cause him to urinate more. [facility] 2023-07-08 11:29:13 Attempted to contact patient, left message on voicemail [facility] Chana Moore MA [facility] 2023-07-08 09:42:26 Addended by: ED CYR on: 07/08/2023 09:42 AM Modules accepted: Orders [facility] 2023-07-08 09:36:19 Ckd Stage 3b noted nephrology referral placed Will send steroid for wheezing in office. Pulm referral placed as well [facility] 2023-07-07 15:45:00 Images from the original note were not included. Venipuncture collection performed by clean technique on the right anticubitus. Total of 1 attempts were made. Slight pressure and a bandage/dressing were applied to the site(s). The patient experienced no complications. The following specimens were processed according to instructions and sent to [facility] laboratories per lab order on today: LT BLUE SST 1 RST RED LAV 2 PPT DK GREEN (LiHep) DK GREEN (SodH) BECERRA DK BLUE (K2) DK BLUE (S) ACD Blood Culture NIPT/NTD [facility]
[2024-04-07 21:39] LABS: Barbiturates NEGATIVE (NEGATIVE); Benzodiazepines NEGATIVE (NEGATIVE); Cocaine NEGATIVE (NEGATIVE); METHAMPHETAM NEGATIVE (NEGATIVE); Methadone NEGATIVE (NEGATIVE); Opiates NEGATIVE (NEGATIVE); Phencyclidine NEGATIVE (NEGATIVE); THC Cannibis NEGATIVE (NEGATIVE)
[2024-04-07 21:44] LABS: Specific Gravity 1.011 (1.005-1.030); Sqamous Epithelial <5 /HPF (None Seen); Urine Bacteria None Seen /HPF (<20); Urine Bilirubin NEGATIVE (Negative); Urine Blood Trace (Negative); Urine Clarity Turbid (Clear); Urine Color Light-Yellow (Yellow); Urine Crystals Unidentified Few /HPF (None Seen); Urine Culture Reflex Order NOT NEEDED; Urine Glucose TRACE (Negative); Urine Ketones NEGATIVE (Negative); Urine Microscopic Reflex YN ORDER UMIC; Urine Mucus Slight /HPF (None Seen); Urine Nitrite NEGATIVE (Negative); Urine Protein 2+ (Negative); Urine RBC <5 /HPF (None Seen); Urine Urobilinogen Normal (Normal); Urine WBC <5 /HPF (<5); Urine pH 5.5 (5.0-7.0)
[2024-04-07 22:43] LABS: Absolute Basophils 0.1 K/uL (0-0.5); Absolute Eosinophils 0.1 K/uL (0-0.5); Absolute Lymphocytes (CBC) 1.4 K/uL (0.7-4.9); Absolute Monocytes 0.8 K/uL (0.1-1.3); Absolute Neutrophil 7.2 K/uL (1.8-8.0); Basophils % 0.6 % (0-1.3); Eosinophils % 0.7 % (0-4.4); Hematocrit 33.8 % (39.6-49.0); Hemoglobin 11.4 g/dL (13.6-17.9); Lymphocytes % 14.6 % (15.3-44.8); MCH 27.8 pg (27.0-35.0); MCHC 33.7 g/dL (32.0-36.0); MCV 82.6 fL (80-100); MPV 9.6 fL (7.6-11.3); Monocytes % 8.2 % (3.3-12.3); Neutrophils % 75.9 % (41.7-73.7); Nucleated Red Blood Cells % 0.1 % (0-0); Platelets 186 thou/uL (152-406)
[2024-04-07 22:48] LABS: PT Prothrombin Time 11.3 SECONDS (9.4-12.5); PTT, Activated Partial Thromb 28.7 SECONDS (24.3-36.9); Protime INR 1.01
[2024-04-07 22:57] LABS: AST/SGOT 13 U/L (15-37); Albumin 3.3 g/dL (3.4-5.0); Albumin/Globulin Ratio 0.8 (1.1-1.8); Alkaline Phosphatase 107 U/L (45-117); Anion Gap 7.8 mEq/L (5.0-15.0); BUN Blood Urea Nitrogen 31 mg/dL (7-18); Bicarbonate 25 mEq/L (21-32); Bilirubin Total 0.5 mg/dL (0.2-1.0); Globulin 4.4 g/dL (2.3-3.5); Glomerular Filtration Rate 36 ml/min (=/>90); Glucose Level 161 mg/dL (74-106); Potassium 3.8 mEq/L (3.5-5.1); Protein, Total 7.7 g/dL (6.4-8.2); Sodium Level 136 mEq/L (136-145)
[2024-04-07 23:03] LABS: ALT/SGPT < 14 U/L (16-61); Bilirubin Direct < 0.2 mg/dL (0-0.2); Bilirubin Indirect, Calculated 0.3 mg/dL (0.2-0.8)
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
[2024-04-08 02:16] VITALS: BP 140/54; O2SAT 96
--- NOTE | 2024-04-12 12:26 | EKG ---
Test Date: 2024-04-07 Test Time: 21:53:53 Cardiopulmonary Specialist: ROBIN MEASUREMENT RESULTS: Intervals: Rate: 75 ND: 240 QRSD: 100 QT: 406 QTc: 453 [place]: P: 67 ND: 240 QRS: -13 T: 60 INTERPRETIVE STATEMENTS: Sinus rhythm with 1st degree AV block Otherwise normal ECG Compared to ECG 02/22/2024 07:15:23 First degree AV block now present Electronically Signed On 04-12-24 12:18:20 DIGITAL PRODUCTION ARTIST by Seun Palma
== END 2024-04-08 02:03 | disposition home or self-care (01) ==
LOC: ER 18:11
DX: R45.1 Restlessness and agitation (principal); F03.918 Unspecified dementia, unspecified severity, with other behavioral disturbance; E11.9 Type 2 diabetes mellitus without complications; I10 Essential (primary) hypertension
CPT/HCPCS: 36415; 80048; 80076; 80143; 80179; 80307; 81001; 82077; 82140; 85025; 85610; 85730; 93005; 99284